=== PATIENT | male | born 1965 | race Caucasian/White ===

== ENCOUNTER 2018-03-01 23:05 | Emergency (ER) | payer OTHER ==
[~2018-03-01] VITALS: Ht 188 cm; Wt 87.0 kg
[~2018-03-01 23:05] MED LIST: Z.0.NO CURRENT MEDS
[2018-03-01 23:11] VITALS: BP 159/74; PULSE 103; RESP 20; TEMP 102.3; O2SAT 93
[2018-03-01 23:45] VITALS: BP 159/74; PULSE 103; RESP 20; TEMP 102.3; O2SAT 93
[2018-03-02] MEDS ORDERED: SODIUM CHLOR 0.9% 1000 ML INJ 1,000 ML IV ONE
[2018-03-02] MEDS ORDERED: ACETAMINOPHEN 325 MG TAB PO ONE
[2018-03-02] MEDS ORDERED: IBUPROFEN 800 MG TAB PO ONE
--- NOTE | 2018-03-02 00:07 | RADRPT ---
EXAM DATE/TIME: 03/01/2018 23:52 [place] COMPARISON: No previous studies available for comparison. INDICATIONS : Fever, cough, shortness of breath. MEDICAL HISTORY : None. SURGICAL HISTORY : None. ENCOUNTER: Initial ACUITY: 3 days PAIN SCORE: 0/10 LOCATION: Bilateral chest FINDINGS: A single view of the chest demonstrates bibasilar linear densities. Heart normal in size. The cardiom ediastinal contours are unremarkable. Osseous structures are intact. CONCLUSION: 1. Bibasilar atelectasis versus infiltrates. Dallas Pantoja MD on March 02, 2018 at 0:05 Board Certified Radiologist. This report was verified electronically.
[2018-03-02] MEDS ORDERED: cefTRIAXone INJ 2,000 MG in SODIUM CHLORIDE 0.9% INJ 100 ML IV ONE (00:15)
[2018-03-02] MEDS ORDERED: AZITHROMYCIN INJ 500 MG in SODIUM CHLOR 0.9% 250 ML INJ 250 ML IV ONE (00:15)
[2018-03-02 00:16] VITALS: O2SAT 94
[2018-03-02 00:28] LABS: AUTOMATED NEUTROPHIL # 7.8 TH/MM3 (1.8-7.7); BASOPHIL # 0.3 TH/MM3 (0-0.2); BASOPHIL % 3.1 % (0.0-2.0); EOSINOPHIL % 0.3 % (0.0-4.0); HEMOGLOBIN 14.8 GM/DL (13.0-17.0); LYMPH % 6.1 % (9.0-44.0); LYMPHOCYTE # 0.5 TH/MM3 (1.0-4.8); MEAN CELL VOLUME 91.4 FL (80.0-100.0); MEAN CORPUSCULAR HEMOGLOBIN 30.1 PG (27.0-34.0); MEAN CORPUSCULAR HGB CONC 32.9 % (32.0-36.0); MEAN PLATELET VOLUME 8.5 FL (7.0-11.0); MONOCYTE # 0.4 TH/MM3 (0-0.9); NEUT % 86.5 % (16.0-70.0); PLATELET COUNT 148 TH/MM3 (150-450); RED BLOOD COUNT 4.93 MIL/MM3 (4.50-5.90); RED CELL DISTRIBUTION WIDTH 12.2 % (11.6-17.2)
[2018-03-02 00:37] LABS: CHLORIDE 102 MEQ/L (98-107); SODIUM (NA) 136 MEQ/L (136-145)
[2018-03-02 00:40] LABS: CALCIUM 8.3 MG/DL (8.5-10.1)
[2018-03-02 00:41] LABS: ALBUMIN 3.4 GM/DL (3.4-5.0); BICARBONATE 25.2 MEQ/L (21.0-32.0); BLOOD UREA NITROGEN 19 MG/DL (7-18); GLUCOSE,RANDOM 140 MG/DL (74-106)
[2018-03-02 00:44] LABS: ALT (GPT) 21 U/L (12-78); AST (GOT) 13 U/L (15-37); GLOMERULAR FILTRATION RATE 70 ML/MIN (>89)
[2018-03-02 00:46] LABS: TOTAL BILIRUBIN ADULT 0.3 MG/DL (0.2-1.0)
[2018-03-02 00:47] LABS: ALKALINE PHOSPHATASE 62 U/L (45-117)
[2018-03-02 00:48] LABS: LACTIC ACID SEPSIS PROTOCOL 2.6 mmol/L (0.4-2.0)
[2018-03-02 01:38] VITALS: BP 125/67; PULSE 85; RESP 20; O2SAT 96
--- NOTE | 2018-03-02 01:43 | PD ---
HPI Chief Complaint: Cold / Flu Symptoms Time Seen by Provider: 23:50 Travel History International Travel<30 days: No Contact w/Intl Traveler<30days: No Traveled to known affect area: No History of Present Illness HPI 52-year-old male presents to the emergency department complaint of fever chills cough congestion and recent diagnosis of influenza. Patient states last week he was diagnosed with influenza was placed on Tamiflu and completed the course of Tamiflu today. Subsequently patient is noted persistent fever fatigue and cough productive of yellow sputum. No hemoptysis no headache no sinus pressure drainage no sore throat no ear pain no chest pain no wheezing no abdominal pain no vomiting no diarrhea no flank pain or dysuria frequency urgency decreased urine output or hematuria. Patient no longer has myalgias arthralgias and denies any joint pain or swelling. Patient is otherwise in good health and does not take medications on a routine basis. Patient did take dose of acetaminophen earlier in the evening but has not taken any subsequently. Patient presents now for further evaluation. 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 bundle branch block, denies cardiac problems) High Cholesterol: No Congestive Heart Failure: No Diabetes: No Gastrointestinal Disorders: Yes (esophageal stricture/spasms/dilation) GERD: Yes Hypertension: No Myocardial Infarction: No Past Surgical History Coronary Artery Bypass Graft: No Tonsillectomy: Yes (and adenoidectomy) Other Surgery: Yes (ESOPHAGEAL DILATATION 2003, ADENOIDS REMOVED CHILD) Social History Alcohol Use: No Tobacco Use: No Substance Use: No Allergies-Medications (Allergen,Severity, Reaction): Uncoded Allergies: strawberries (Allergy, Intermediate, Swelling, 03/02/18) swelling of throat Reported Meds & Prescriptions Reported Meds & Active Scripts Active Ventolin Hfa 18 GM Inh (Albuterol Sulfate) 90 Mcg/Act Aer 2 Puff INH Q4-6H PRN Zithromax Z-Doyle (Azithromycin) 250 Mg Dspk 250 Mg PO DIRECTED 500 MG (2 tabs) day 1, then 1 tab days 2-5. Reported No Current Meds (Miscellaneous Medication) Misc Review of Systems Except as stated in HPI: all other systems reviewed are Neg General / Constitutional: Positive: Fever, Chills HENT: Positive: Congestion Cardiovascular: No: Chest Pain or Discomfort Respiratory: Positive: Cough, No: Shortness of Breath Gastrointestinal: No: Vomiting, Diarrhea Genitourinary: No: Dysuria, Flank Pain Musculoskeletal: No: Myalgias, Arthralgias Skin: No Rash Neurologic: No: Weakness, Dizziness, Syncope Psychiatric: No: Anxiety Hematologic/Lymphatic: No: Lymph Node Enlargement Physical Exam Narrative GENERAL: Well-developed well-nourished male in no respiratory distress with fever SKIN: Warm and dry. HEAD: Normocephalic. EYES: No scleral icterus. No injection or drainage. NECK: Supple, trachea midline. No JVD or lymphadenopathy. CARDIOVASCULAR: Increased regular rate and rhythm without murmurs, gallops, or rubs. RESPIRATORY: Breath sounds equal bilaterally. No accessory muscle use. GASTROINTESTINAL: Abdomen soft, non-tender, nondistended. MUSCULOSKELETAL: No cyanosis, or edema. BACK: Nontender without obvious deformity. No CVA tenderness. Data Data Last Documented VS Vital Signs Date Time Temp Pulse Resp B/P (MAP) Pulse Ox O2 Delivery O2 Flow Rate FiO2 03/02/18 03:18 61 20 126/65 (85) 94 Room Air 03/02/18 01:58 99.1 Orders Orders Sepsis Workup Initiated (03/01/18 ) Complete Blood Count With Diff (03/01/18 23:50) Comprehensive Metabolic Panel (03/01/18 23:50) Lactic Acid Sepsis Protocol (03/01/18 23:50) Urinalysis - C+S If Indicated (03/01/18 23:50) Influenzae A/B Antigen (03/01/18 23:50) Blood Culture (03/01/18 23:50) Chest, Single Ap (03/01/18 23:50) Blood Glucose (03/01/18 23:50) Ecg Monitoring (03/01/18 23:50) Iv Access Insert/Monitor (03/01/18 23:50) Oximetry (03/01/18 23:50) Oxygen Administration (03/01/18 23:50) Sodium Chlor 0.9% 1000 Ml Inj (Ns 1000 M (03/02/18 00:00) Ibuprofen (Motrin) (03/02/18 00:00) Acetaminophen (Tylenol) (03/02/18 00:00) Azithromycin Inj (Zithromax Inj) (03/02/18 00:15) Ceftriaxone Inj (Rocephin Inj) (03/02/18 00:15) Ed Discharge Order (03/02/18 02:51) Labs Laboratory Tests Test 03/02/18 00:10 03/02/18 01:45 03/02/18 02:30 White Blood Count 9.0 TH/MM3 Red Blood Count 4.93 MIL/MM3 Hemoglobin 14.8 GM/DL Hematocrit 45.0 % Mean Corpuscular Volume 91.4 FL Mean Corpuscular Hemoglobin 30.1 PG Mean Corpuscular Hemoglobin Concent 32.9 % Red Cell Distribution Width 12.2 % Platelet Count 148 TH/MM3 Mean Platelet Volume 8.5 FL Neutrophils (%) (Auto) 86.5 % Lymphocytes (%) (Auto) 6.1 % Monocytes (%) (Auto) 4.0 % Eosinophils (%) (Auto) 0.3 % Basophils (%) (Auto) 3.1 % Neutrophils # (Auto) 7.8 TH/MM3 Lymphocytes # (Auto) 0.5 TH/MM3 Monocytes # (Auto) 0.4 TH/MM3 Eosinophils # (Auto) 0.0 TH/MM3 Basophils # (Auto) 0.3 TH/MM3 CBC Comment DIFF FINAL Differential Comment Blood Urea Nitrogen 19 MG/DL Creatinine 1.10 MG/DL Random Glucose 140 MG/DL Total Protein 7.0 GM/DL Albumin 3.4 GM/DL Calcium Level 8.3 MG/DL Alkaline Phosphatase 62 U/L Aspartate Amino Transf (AST/SGOT) 13 U/L Alanine Aminotransferase (ALT/SGPT) 21 U/L Total Bilirubin 0.3 MG/DL Sodium Level 136 MEQ/L Potassium Level 3.8 MEQ/L Chloride Level 102 MEQ/L Carbon Dioxide Level 25.2 MEQ/L Anion Gap 9 MEQ/L Estimat Glomerular Filtration Rate 70 ML/MIN Lactic Acid Level 2.6 mmol/L 1.9 mmol/L Urine Collection Type CLEAN CATCH Urine Color YELLOW Urine Turbidity CLEAR Urine pH 5.5 Urine Specific [place] 1.010 Urine Protein NEG mg/dL Urine Glucose (UA) NEG mg/dL Urine Ketones NEG mg/dL Urine Occult Blood NEG Urine Nitrite NEG Urine Bilirubin NEG Urine Urobilinogen 0.2 MG/DL Urine Leukocyte Esterase NEG Urine Squamous Epithelial Cells 0-5 /hpf Urine Amorphous Sediment SMALL Urine Mucus MOD /lpf Microscopic Urinalysis Comment CULT NOT INDICATED MDM Medical Decision Making Medical Screen Exam Complete: Yes Emergency Medical Condition: Yes Medical Record Reviewed: Yes Interpretation(s) Last Impressions Chest X-Ray 03/01/18 2350 Signed Impressions: Service Date/Time: Thursday, March 01, 2018 23:52 - CONCLUSION: 1. Bibasilar atelectasis versus infiltrates. Dallas Pantoja MD CBC & BMP Diagram 03/02/18 00:10 Total Protein 7.0, Albumin 3.4, Calcium Level 8.3 L, Alkaline Phosphatase 62, Aspartate Amino Transf (AST/SGOT) 13 L, Alanine Aminotransferase (ALT/SGPT) 21, Total Bilirubin 0.3 Vital Signs Date Time Temp Pulse Resp B/P (MAP) Pulse Ox O2 Delivery O2 Flow Rate FiO2 03/02/18 03:18 61 20 126/65 (85) 94 Room Air 03/02/18 01:58 99.1 86 20 97 Room Air 03/02/18 01:38 85 20 125/67 (86) 96 Room Air 03/02/18 00:17 Room Air 03/02/18 00:16 94 Room Air 03/01/18 23:56 103 20 93 Room Air 03/01/18 23:45 102.3 103 20 159/74 (102) 93 03/01/18 23:11 102.3 103 20 159/74 (102) 93 Differential Diagnosis Febrile illness, influenza, pneumonia, sepsis Narrative Course At 1:44 AM vital signs have normalized patient feels clinically and symptomatically improved and desirous of being discharged home discussed with patient with at bedside diagnosis of pneumonia and sepsis is aware has received a dose of Rocephin for 24-hour therapy and azithromycin for 24 hour therapy and is no longer tachycardic or febrile and no respiratory distress or tachypnea. CBC is automated differential normal total white cell count however left shift by automated differential; lactic acid is elevated at 2.6 Chemistry grossly within normal range Chest x-ray shows right greater than left basilar infiltrate atelectasis Recommendation for admission however patient feels well has close relationship with primary care provider can see primary care provider in one day and is compliant with medications. Will attempt trial of outpatient therapy for post influenza early pneumonia without hypoxemia although patient is encouraged to return immediately within 12 hours her last or 24 hours if fever shortness of breath weakness or any concerns as will require hospitalization. Repeat lactic acid 1.9. Again patient is offered admission for IV fluids IV antibiotics antipyretics and management post influenza with ongoing febrile illness and right lower lobe infiltrate. Patient does not want to be admitted to the hospital feels markedly improved is desirous of being discharged home with close follow-up with his primary care provider 1 day. Patient will be given trial of outpatient oral antibiotics. Critical Care Narrative Aggregate critical care time was 40 minutes. Time to perform other separately billable procedures was not included in the critical care time. My time did not include minutes spent treating any other patients simultaneously or on activities that did not directly contribute to the patient's treatment. The services I provided to this patient were to treat and/or prevent clinically significant deterioration that could result in: Respiratory failure, septic shock, I provided critical care services requiring my management, as noted below: Chart data review, documentation time, medication orders and management, vital sign assessments/reviewing monitor data, ordering and reviewing lab tests, ordering and interpreting/reviewing x-rays and diagnostic studies, care of the patient and discussion of the patient with the admitting physicians. Sepsis Criteria SIRS Criteria (2 or more): Temp > 100.9 or < 96.8, Heart rate over 90 Sepsis Criteria (SIRS+source): Infect source susp/known (pulmonary/ early pneumonia) Severe Sepsis (+one): Lactate >2 Diagnosis Primary Impression: Pneumonia Qualified Codes: J18.1 - Lobar pneumonia, unspecified organism Additional Impression: Sepsis Qualified Codes: A41.9 - Sepsis, unspecified organism Referrals: Primary Care Physician 1 day Patient Instructions: General Instructions Departure Forms: Tests/Procedures, Work Release Special Instructions: no work x 3 days Additional Instructions: Increase fluid hydration complete course of antibiotic as prescribed Take acetaminophen/Tylenol every 4 hours for fever 100.4F or greater Take ibuprofen 800 mg every 8 hours for fever 100.4F or greater for pain Associates inflammation Complete course of antibiotic as prescribed Follow-up with your primary care provider 1 day Return to the emergency department for any concerns or change in condition No work 3 days Med/Other Pt SpecificInfo: Prescription(s) given Scripts Albuterol 18 GM Inh (Ventolin Hfa 18 GM Inh) 90 Mcg/Act Aer 2 PUFF INH Q4-6H Y for SHORTNESS OF BREATH, #1 INHALER 0 Refills Prov: Bing Stern MD 03/02/18 Azithromycin (Zithromax Z-Doyle) 250 Mg Dspk 250 MG PO DIRECTED for Infection, #1 DSPK 0 Refills 500 MG (2 tabs) day 1, then 1 tab days 2-5. Prov: Bing Stern MD 03/02/18 Disposition: 01 DISCHARGE HOME Condition: Stable Bing Stern MD Mar 02, 2018 01:43
[2018-03-02 01:58] VITALS: PULSE 86; RESP 20; TEMP 99.1; O2SAT 97
[2018-03-02 02:01] LABS: BILIRUBIN, URINE NEG (NEG); BLOOD, URINE NEG (NEG); GLUCOSE,URINE NEG (NEG); KETONE, URINE NEG (NEG); NITRITE,URINE NEG (NEG); PH, URINE 5.5 (5.0-8.5); URINE COLOR YELLOW (YELLW/STRAW); URINE LEUKOCYTE ESTERASE NEG (NEG)
[2018-03-02 02:16] LABS: MUCUS URINE MOD /lpf (OCC)
[2018-03-02 02:17] LABS: AMORPHOUS SEDIMENT, URINE SMALL; SQUAMOUS EPITHELIAL CELL URINE 0-5 /hpf (0-5)
[2018-03-02] MEDS ORDERED: VENTAER INH (02:54)
[2018-03-02] MEDS ORDERED: ZITHTAB PO (02:54)
[2018-03-02 03:18] VITALS: BP 126/65; PULSE 61; RESP 20; O2SAT 94
== END 2018-03-02 03:30 | disposition home or self-care (01) ==
LOC: PHED 23:05
DX: J18.9 Pneumonia, unspecified organism (principal); A41.9 Sepsis, unspecified organism; J45.909 Unspecified asthma, uncomplicated; K21.9 Gastro-esophageal reflux disease without esophagitis; Z79.51 Long term (current) use of inhaled steroids
CPT/HCPCS: 71045; 80053; 81001; 83605; 85025; 87040; 87804; 96361; 96365; 96367; 99291; J0456; J0696; J7030; J7050

== ENCOUNTER 2018-04-28 05:22 | Inpatient (IN) | payer OTHER ==
[~2018-04-28] VITALS: Ht 188 cm; Wt 92.3 kg
[~2018-04-28 05:22] MED LIST changes: +VENTAER INH; +ZITHTAB PO
[2018-04-28 05:32] VITALS: BP 147/76; PULSE 66; RESP 18; TEMP 98; O2SAT 99
[2018-04-28] MEDS ORDERED: NEXI40CA PO (06:00)
[2018-04-28] MEDS ORDERED: BACT400T PO (06:00)
[2018-04-28] MEDS ORDERED: CLINDAMYCIN 600 MG/NS PREMIX 50 ML IV ONE (06:15)
[2018-04-28] MEDS ORDERED: TETANUS/DIPHTHERIA TOXOID ADULT 0.5 ML VIAL IM ONE (06:15)
[2018-04-28] MEDS ORDERED: VANCOMYCIN INJ 1,000 MG in SODIUM CHLOR 0.9% 250 ML INJ 250 ML IV ONE (06:15)
--- NOTE | 2018-04-28 06:16 | PD ---
HPI Chief Complaint: Skin Problem Time Seen by Provider: 05:50 Travel History International Travel<30 days: No Contact w/Intl Traveler<30days: No Traveled to known affect area: No History of Present Illness HPI The patient is a 52-year-old male who presents to emergency department for an infected second digit of the right hand. The patient states he was working last Friday on a metal sink with another piece of metal equipment and thinks he may have injured his finger at that time. The patient states the next day he saw a small pinpoint area over the proximal interphalangeal joint, he then noticed that there was increasing swelling. He placed an object in the affected area in an attempt to drain it. He had no drainage at that time, however, the next day noticed his finger was swollen. The patient was seen at [facility] on Friday and diagnosed with a finger infection. The patient was placed on Bactrim at that time. The patient notes increasing swelling and pain, now has drainage from an open area over the proximal interphalangeal joint and middle phalanx. He is right-hand dominant. He cannot recall his last tetanus shot. He denies any fever. He is able to flex the affected area, however, has pain with flexion at the PIP. 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, denies cardiac problems) High Cholesterol: No Congestive Heart Failure: No Diabetes: No Gastrointestinal Disorders: Yes (esophageal stricture/spasms/dilation) GERD: Yes Hypertension: No Myocardial Infarction: No Past Surgical History Coronary Artery Bypass Graft: No Tonsillectomy: Yes (and adenoidectomy) Other Surgery: Yes (ESOPHAGEAL DILATATION 2003, ADENOIDS REMOVED CHILD) Social History Alcohol Use: No Tobacco Use: No Substance Use: No Allergies-Medications (Allergen,Severity, Reaction): Coded Allergies: vancomycin (Verified Adverse Reaction, Intermediate, Flushing, 04/28/18) REDNESS/ ITCHING Uncoded Allergies: strawberries (Allergy, Intermediate, Swelling, 03/02/18) swelling of throat Reported Meds & Prescriptions Reported Meds & Active Scripts Active Reported Bactrim (Sulfamethoxazole-Trimethoprim) 400-80 Mg Tab 1 Tab PO BID Nexium (Esomeprazole DR) 40 Mg Capdr 40 Mg PO DAILY Review of Systems Except as stated in HPI: all other systems reviewed are Neg General / Constitutional: No: Fever, Chills Musculoskeletal: Positive: Edema, Pain Skin: Positive Other (As noted in the history of present illness) Neurologic: No: Paresthesia, Sensory Disturbance Physical Exam Narrative GENERAL: Awake, alert, nontoxic-appearing 52-year-old male who appears his stated age and is in no acute respiratory distress. SKIN: Focused skin assessment warm/dry. HEAD: Atraumatic. Normocephalic. EYES: No injection or drainage. ENT: No nasal bleeding or discharge. Mucous membranes pink and moist. NECK: Trachea midline. No JVD. CARDIOVASCULAR: Regular rate and rhythm. No murmur appreciated. RESPIRATORY: No accessory muscle use. Clear to auscultation. Breath sounds equal bilaterally. MUSCULOSKELETAL: Second digit of the right hand is edematous and erythematous. There is an open area over the middle proximal phalanx and proximal interphalangeal joint. There is surrounding erythema and slight necrosis of the skin. When the joint is palpated, there is purulent drainage expressed from the opening area. He is able to flex at the MCP to almost 90 as well as the DIP. Positive right radial pulse. NEUROLOGICAL: Awake and alert. No obvious cranial nerve deficits. Motor grossly within normal limits. Normal speech. PSYCHIATRIC: Appropriate mood and affect; insight and judgment normal. Data Data Last Documented VS Vital Signs Date Time Temp Pulse Resp B/P (MAP) Pulse Ox O2 Delivery O2 Flow Rate FiO2 04/28/18 05:32 98.0 66 18 147/76 (99) 99 Orders Orders Tetanus/Diphtheria Tox Adult (Tetanus/Di (04/28/18 06:15) Complete Blood Count With Diff (04/28/18 06:04) Basic Metabolic Panel (Bmp) (04/28/18 06:04) Clindamycin 600 Mg/Ns Premix (Cleocin 60 (04/28/18 06:15) Vancomycin Inj (Vancomycin Inj) (04/28/18 06:15) Finger ([id number]) (04/28/18 ) Consult Hand Surgery (04/28/18 ) Consent (04/28/18 06:16) Diet Npo (04/28/18 Breakfast) W[place]gren Sedimentation Rate (04/28/18 06:16) C-Reactive Protein (Crp) (04/28/18 06:16) Mri Hand W&W/O Contrast (04/28/18 ) Consult Infectious Disease (04/28/18 ) (Hub Use Only)Inp Phy Cons/Ref (04/28/18 ) (Hub Use Only)Inp Phy Cons/Ref (04/28/18 ) Admit To Inpatient (04/28/18 ) Vital Signs (Adult) Q4H (04/28/18 06:30) Activity Oob Ad Zabrina (04/28/18 06:30) Intake + Output SHAYAN.QSHIFT (04/28/18 06:30) Sodium Chlor 0.9% 1000 Ml Inj (Ns 1000 M (04/28/18 06:30) Sodium Chloride 0.9% Flush (Ns Flush) (04/28/18 06:30) Sodium Chloride 0.9% Flush (Ns Flush) (04/28/18 09:00) Acetaminophen (Tylenol) (04/28/18 06:30) Basic Metabolic Panel (Bmp) (04/29/18 06:00) Complete Blood Count With Diff (04/29/18 06:00) Case Management Consult (04/28/18 06:30) Scd Bilateral/Knee High SHAYAN.BID (04/28/18 06:30) Naloxone Inj (Narcan Inj) (04/28/18 06:30) Magnesium Hydroxide Liq (Milk Of Magnesi (04/28/18 06:30) Sennosides (Senokot) (04/28/18 06:30) Bisacodyl Supp (Dulcolax Supp) (04/28/18 06:30) Lactulose Liq (Lactulose Liq) (04/28/18 06:30) Inpatient Certification (04/28/18 ) Admit Order (Ed Use Only) (04/28/18 06:33) Labs Laboratory Tests Test 04/28/18 06:30 White Blood Count 8.9 TH/MM3 Red Blood Count 4.73 MIL/MM3 Hemoglobin 15.0 GM/DL Hematocrit 44.3 % Mean Corpuscular Volume 93.5 FL Mean Corpuscular Hemoglobin 31.7 PG Mean Corpuscular Hemoglobin Concent 34.0 % Red Cell Distribution Width 13.8 % Platelet Count 260 TH/MM3 Mean Platelet Volume 7.9 FL Neutrophils (%) (Auto) 73.4 % Lymphocytes (%) (Auto) 14.6 % Monocytes (%) (Auto) 8.4 % Eosinophils (%) (Auto) 3.0 % Basophils (%) (Auto) 0.6 % Neutrophils # (Auto) 6.5 TH/MM3 Lymphocytes # (Auto) 1.3 TH/MM3 Monocytes # (Auto) 0.7 TH/MM3 Eosinophils # (Auto) 0.3 TH/MM3 Basophils # (Auto) 0.1 TH/MM3 CBC Comment DIFF FINAL Differential Comment Erythrocyte Sedimentation Rate 13 mm/hr Blood Urea Nitrogen 18 MG/DL Creatinine 1.10 MG/DL Random Glucose 95 MG/DL Calcium Level 9.0 MG/DL Sodium Level 139 MEQ/L Potassium Level 3.9 MEQ/L Chloride Level 104 MEQ/L Carbon Dioxide Level 24.7 MEQ/L Anion Gap 10 MEQ/L Estimat Glomerular Filtration Rate 70 ML/MIN C-Reactive Protein 3.50 MG/DL MDM Medical Decision Making Medical Screen Exam Complete: Yes Emergency Medical Condition: Yes Medical Record Reviewed: Yes Interpretation(s) X-ray of the second digit right hand reveals what appears to be a foreign body over the extensor surface of the proximal phalanx, just proximal to the PIP. Laboratory Tests Test 04/28/18 06:30 White Blood Count 8.9 TH/MM3 Red Blood Count 4.73 MIL/MM3 Hemoglobin 15.0 GM/DL Hematocrit 44.3 % Mean Corpuscular Volume 93.5 FL Mean Corpuscular Hemoglobin 31.7 PG Mean Corpuscular Hemoglobin Concent 34.0 % Red Cell Distribution Width 13.8 % Platelet Count 260 TH/MM3 Mean Platelet Volume 7.9 FL Neutrophils (%) (Auto) 73.4 % Lymphocytes (%) (Auto) 14.6 % Monocytes (%) (Auto) 8.4 % Eosinophils (%) (Auto) 3.0 % Basophils (%) (Auto) 0.6 % Neutrophils # (Auto) 6.5 TH/MM3 Lymphocytes # (Auto) 1.3 TH/MM3 Monocytes # (Auto) 0.7 TH/MM3 Eosinophils # (Auto) 0.3 TH/MM3 Basophils # (Auto) 0.1 TH/MM3 CBC Comment DIFF FINAL Differential Comment Erythrocyte Sedimentation Rate 13 mm/hr Blood Urea Nitrogen 18 MG/DL Creatinine 1.10 MG/DL Random Glucose 95 MG/DL Calcium Level 9.0 MG/DL Sodium Level 139 MEQ/L Potassium Level 3.9 MEQ/L Chloride Level 104 MEQ/L Carbon Dioxide Level 24.7 MEQ/L Anion Gap 10 MEQ/L Estimat Glomerular Filtration Rate 70 ML/MIN C-Reactive Protein 3.50 MG/DL Differential Diagnosis Differential diagnosis includes septic joint, infected finger failed outpatient therapy, finger abscess, necrotizing fasciitis, tenosynovitis. Narrative Course IV was established, labs are drawn and sent, and the patient was placed on cardiac telemetry monitoring and continuous pulse oximetry monitoring. The patient was advised he would be n.p.o. X-ray was ordered the second digit to rule out foreign body. The test and shot was updated. CBC, BMP were sent to lab and the patient was administered vancomycin 1 g intravenously and clindamycin 600 mg intravenously. I discussed the patient with Dr. Johnston, the on-call hand surgeon, who agrees with 23 hour observation to [facility] with consultation hand surgery. The patient will be kept n.p.o. I discussed the patient with Dr. Jesi Hall, [facility], he states that this is a workers comp case and the patient should be admitted to the on- call medical service. Therefore, discussed the [facility] Dr[facility] Carr, who agrees with admission. The patient will be admitted for IV antibiotics and possible definitive therapy in the operating room. The patient is comfortable with this plan of care and disposition. Physician Communication Physician Communication A call was placed to [facility] for 23 hour observation. I discussed the patient with Dr. Carr who agrees with admission. Diagnosis Primary Impression: Infected finger Admitting Information Admitting Physician Requests: Admit Condition: Stable Kali Villarreal MD Apr 28, 2018 06:16
[2018-04-28] MEDS ORDERED: BISACODYL 10 MG SUPP RECTAL PRN (06:30)
[2018-04-28] MEDS ORDERED: MAGNESIUM HYDROXIDE SUSP 30 ML CUP PO PRN (06:30)
[2018-04-28] MEDS ORDERED: LACTULOSE SYRUP 20 GM/30 ML CUP PO PRN (06:30)
[2018-04-28] MEDS ORDERED: SENNOSIDES 8.6 MG TAB PO PRN (06:30)
[2018-04-28] MEDS ORDERED: ACETAMINOPHEN 325 MG TAB PO PRN (06:30)
[2018-04-28] MEDS ORDERED: SODIUM CHLORIDE 0.9% FLUSH 10 ML FLUSH IV FLUSH PRN (06:30)
[2018-04-28] MEDS ORDERED: NALOXONE HCL 0.4 MG/ML AMP IV PUSH PRN (06:30)
--- NOTE | 2018-04-28 06:46 | RADRPT ---
EXAM DATE: 04/28/2018 6:21 AM EDT AGE/SEX: 52 years / Male INDICATIONS: Pain. Infected RT 2nd digit. CLINICAL DATA: This is the patient's initial encounter. Patient reports that signs and symptoms have been present for 1 week and indicates a pain score of 5/10. MEDICAL/SURGICAL HISTORY: None. None. COMPARISON: No prior [place] exams available for comparison. FINDINGS: Diffuse abnormal soft tissue swelling of the finger. The bony structures are grossly intact. No acute fracture or joint dislocation. Small calcification versus foreign body in the soft tissues along the dorsal portion of the finger. CONCLUSION: Diffuse abnormal soft tissue swelling. Electronically signed by: Jacob Hernandez MD 04/28/2018 6:45 AM EDT
[2018-04-28 06:59] LABS: AUTOMATED NEUTROPHIL # 6.5 TH/MM3 (1.8-7.7); BASOPHIL # 0.1 TH/MM3 (0-0.2); BASOPHIL % 0.6 % (0.0-2.0); EOSINOPHIL # 0.3 TH/MM3 (0-0.4); HEMATOCRIT 44.3 % (39.0-51.0); LYMPH % 14.6 % (9.0-44.0); LYMPHOCYTE # 1.3 TH/MM3 (1.0-4.8); MEAN CELL VOLUME 93.5 FL (80.0-100.0); MEAN CORPUSCULAR HEMOGLOBIN 31.7 PG (27.0-34.0); MEAN PLATELET VOLUME 7.9 FL (7.0-11.0); MONO % 8.4 % (0.0-8.0); MONOCYTE # 0.7 TH/MM3 (0-0.9); NEUT % 73.4 % (16.0-70.0); PLATELET COUNT 260 TH/MM3 (150-450); RED BLOOD COUNT 4.73 MIL/MM3 (4.50-5.90); RED CELL DISTRIBUTION WIDTH 13.8 % (11.6-17.2); WHITE BLOOD COUNT 8.9 TH/MM3 (4.0-11.0)
[2018-04-28 07:20] LABS: BICARBONATE 24.7 MEQ/L (21.0-32.0); CREATININE 1.1 MG/DL (0.60-1.30)
[2018-04-28] MEDS: SODIUM CHLORIDE 0.9% FLUSH 10 ML FLUSH IV FLUSH SCH ×2 (09:00→21:00)
[2018-04-28] MEDS ORDERED: GADODIAMIDE PF 287 MG/ML 20 ML VIAL (for RAD MRI) IV PUSH ONE (09:14)
--- NOTE | 2018-04-28 09:30 | RADRPT ---
EXAM DATE: 04/28/2018 8:57 AM EDT AGE/SEX: 52 years / Male INDICATIONS: Osteomyelitis. Pt cut finger working on sink Tues. 2nd digit right hand. CLINICAL DATA: This is the patient's initial encounter. Patient reports that signs and symptoms have been present for 2 days and indicates a pain score of 4/10. MEDICAL/SURGICAL HISTORY: Asthma. Gastroesophageal reflux disease. . Adenoidectomy. COMPARISON: No prior [place] exams available for comparison. TECHNIQUE: Multiplanar, multisequence MRI examination was performed without contrast and after the i ntravenous administration of 19 ml Omniscan (gadodiamide) contrast as a single exam dose. FINDINGS: Marrow: There is homogeneous signal in the marrow of the visualized bones of the hand. Metacarpal-Phalangeal Joints: The MCP joints are unremarkable with no evidence of erosion, effusion, or malalignment. Interphalangeal Joints: The PIP and DIP joints are unremarkable with no evidence of erosion, effusio n or malalignment. Extensor Tendons: The visualized extensor tendons are intact. Flexor Tendons: The visualized flexor tendons are intact. Soft Tissues: There is marked soft tissue swelling around the second finger. There is marked enhance ment as well as a serpiginous area of nonenhancement along the dorsal ulnar aspect of the finger at t he level of the middle phalangeal bone presumably an abscess. It extends at least a centimeter in cep halocaudad length Post Contrast: Marked enhancement of the second finger except for what appears to be a small subcutan eous abscess CONCLUSION: 1. Marked enhancement inflammation of the soft tissues of the second finger with a abscess along the dorsal ulnar aspect measuring 1.3 x 0.5 cm across. It is 1 cm in length. Electronically signed by: Sharif Hamilton MD 04/28/2018 9:29 AM EDT
[2018-04-28 09:32] VITALS: BP 133/75; PULSE 58; RESP 18; O2SAT 97
[2018-04-28] MEDS: SODIUM CHLOR 0.9% 1000 ML INJ 1,000 ML IV SCH ×3 (09:34→22:29)
[2018-04-28 11:17] VITALS: BP 138/74; PULSE 60; RESP 18; TEMP 98; O2SAT 99
[2018-04-28] MEDS ORDERED: DEXAMETHASONE SOD PHOS 4 MG/ML VIAL IV ONE (12:00)
[2018-04-28] MEDS ORDERED: ONDANSETRON HCL 4 MG/2 ML VIAL IV ONE (12:00)
[2018-04-28] MEDS ORDERED: PROPOFOL 200 MG/20 ML AMP IV ONE (12:00)
[2018-04-28] MEDS ORDERED: LACTATED RINGER'S 1000 ML INJ 1,000 ML IV ONE (12:00)
[2018-04-28] MEDS ORDERED: POVIDONE IODINE 5% (ANTISEPSIS KIT) 4 APPLICATIONS EACH NARE PRN (13:15)
[2018-04-28] MEDS ORDERED: SODIUM CHLORID 0.9% 500 ML IV PRN (13:15)
[2018-04-28] MEDS ORDERED: LACTATED RINGER'S 1000 ML IV PRN (13:15)
[2018-04-28] MEDS ORDERED: CHLORHEXIDINE GLUCONATE 2 % 1 PACK (2 CLOTHS) TOPICAL PRN (13:15)
[2018-04-28] MEDS ORDERED: METOPROLOL TARTRATE 25 MG TAB PO PRN (13:15)
--- NOTE | 2018-04-28 13:55 | PD.CONS ---
History of Present Illness Service Infectious disease Consult Requested By Dr. Johnston Reason for Consult Evaluate patient with finger infection Primary Care Physician Non-Staff Diagnoses: History of Present Illness Patient seen and examined. Records reviewed. Patient is a 53-year-old male with no significant past medical history, was at work a week ago when he sustained a wound on his right index finger while working with metal. He was wearing gloves at that time. He thought he had a blister. He started noticing redness and swelling, and due to the nature of the injury, I took some time and he was eventually seen on Friday about 4 days prior to admission. He was given Bactrim. The swelling however was not improving and it was getting worse, so he went back to the clinic, and apparently the area was drained and got some pus. He was not really improving, and presented to the hospital and has now been admitted. The area of redness and swelling had stayed in the finger. He did not see any red streaks going up the hand or his forearm. He denies any fever chills or sweats. Denies any nausea or vomiting or other GI problem. Since admission he has not been febrile. MRI did show an abscess on the dorsal aspect of that finger, and there was no mention of any bone abnormality or fluid in the joint. His WBC is normal. Sed rate 13, C-reactive protein 3.5. Patient received 1 dose of vancomycin and clindamycin this morning Infectious disease consultation has been requested to assist with evaluation and treatment. Review of Systems Constitutional: DENIES: Fever, Chills, Night Sweats Eyes: DENIES: Eye pain Ears, nose, mouth, throat: DENIES: Nasal discharge, Oral lesions, Throat pain, Sinus Pain Respiratory: DENIES: Cough, Shortness of breath Cardiovascular: DENIES: Chest pain, Palpitations, Syncope, Dyspnea on Exertion Gastrointestinal: DENIES: Abdominal pain, Diarrhea, Nausea, Vomiting, Difficulty Swallowing Genitourinary: DENIES: Urgency, Dysuria Musculoskeletal: COMPLAINS OF: Joint pain, Joint Swelling Integumentary: DENIES: Rash Hematologic/lymphatic: DENIES: Bruising Immunologic/allergic: DENIES: Urticaria Neurologic: DENIES: Headache, Localized weakness Psychiatric: DENIES: Hallucinations Past Family Social History Allergies: Coded Allergies: vancomycin (Verified Adverse Reaction, Intermediate, Flushing, 04/28/18) REDNESS/ ITCHING Uncoded Allergies: strawberries (Allergy, Intermediate, Swelling, 03/02/18) swelling of throat Past Medical History Has known bundle branch block otherwise no other cardiac history Rest of medical history is unremarkable Past Surgical History None Reported Medications Reported Meds & Active Scripts Active Reported Bactrim (Sulfamethoxazole-Trimethoprim) 400-80 Mg Tab 1 Tab PO BID Nexium (Esomeprazole DR) 40 Mg Capdr 40 Mg PO DAILY Active Ordered Medications Current Medications Medications (Trade) Dose Ordered Sig/Deion Route Start Time Stop Time Status Last Admin Sodium Chloride 1,000 ml @ 100 mls/hr Q10H IV 04/28/18 06:30 04/28/18 09:34 (NS Flush) 2 ml UNSCH PRN IV FLUSH 04/28/18 06:30 (NS Flush) 2 ml BID IV FLUSH 04/28/18 09:00 (Tylenol) 650 mg Q4H PRN PO 04/28/18 06:30 (Narcan Inj) 0.4 mg UNSCH PRN IV PUSH 04/28/18 06:30 (Milk Of Magnesia Liq) 30 ml Q12H PRN PO 04/28/18 06:30 (Senokot) 17.2 mg Q12H PRN PO 04/28/18 06:30 (Dulcolax Supp) 10 mg DAILY PRN RECTAL 04/28/18 06:30 (Lactulose Liq) 30 ml DAILY PRN PO 04/28/18 06:30 Lactated Ringer's 1,000 ml @ 30 mls/hr Q24H PRN IV 04/28/18 13:15 05/01/18 13:14 UNV Sodium Chloride 500 ml @ 30 mls/hr [id number] PRN IV 04/28/18 13:15 05/01/18 13:14 UNV (Lopressor) 25 mg BAT BOY/GIRL PRN PO 04/28/18 13:15 05/01/18 13:14 UNV (Betadine 5% Antisepsis Kit) 1 applic BAT BOY/GIRL PRN EACH NARE 04/28/18 13:15 05/01/18 13:14 UNV (Chlorhexidine 2% Cloth) 3 pack BAT BOY/GIRL PRN TOPICAL 04/28/18 13:15 05/01/18 13:14 UNV Family History Noncontributory Social History Denies smoking Denies alcohol abuse Denies illicit drug Physical Exam Vital Signs Vital Signs Date Time Temp Pulse Resp B/P (MAP) Pulse Ox O2 Delivery O2 Flow Rate FiO2 04/28/18 11:17 98.0 60 18 138/74 (95) 99 04/28/18 09:32 58 18 133/75 (94) 97 Room Air 04/28/18 05:32 98.0 66 18 147/76 (99) 99 Physical Exam GENERAL: Patient is a well-nourished, well-developed male, awake and alert, not in respiratory distress. SKIN: Cool and dry. No generalized rash, no ecchymoses and no evidence of embolic lesions. HEAD: Atraumatic. Normocephalic. No temporal wasting, or tenderness. EYES: Ivy conjunctiva. No petechia or hemorrhage. Pupils equal, round and reactive to light. Extraocular movements full and intact. No scleral icterus. No injection or drainage. EARS, NOSE AND THROAT: Nose without bleeding or purulent nasal discharge. No sinus tenderness. Mucous membranes pink and moist. No oral lesions noted. NECK: Trachea midline. Supple and not tender, no meningeal signs CARDIOVASCULAR: Regular rate and rhythm. No murmurs, rubs or gallops heard RESPIRATORY: Clear to auscultation. Breath sounds equal bilaterally. No rales , wheezing or rhonchi ABDOMEN: Soft, non-tender, nondistended. Bowel sounds present and normoactive. No guarding. No rebound. No organomegaly. EXTREMITIES: No clubbing, cyanosis, or edema in BLE. R hand - the RIF is markedly wollen with redness mellisa at level of PIP with a fluctuant area that has bloody purulent fluid, sent fluid for G/S C/S. No lymphangitis seen on dorsum of R hand or forearm. No calf tenderness. Well perfused and warm. NEUROLOGICAL: Awake and alert. Cranial nerves grossly intact. Motor grossly within normal limits. PSYCHIATRIC: Normal affect, calm and cooperative. LINE: No evidence of infection Laboratory Laboratory Tests Test 04/28/18 06:30 White Blood Count 8.9 Red Blood Count 4.73 Hemoglobin 15.0 Hematocrit 44.3 Mean Corpuscular Volume 93.5 Mean Corpuscular Hemoglobin 31.7 Mean Corpuscular Hemoglobin Concent 34.0 Red Cell Distribution Width 13.8 Platelet Count 260 Mean Platelet Volume 7.9 Neutrophils (%) (Auto) 73.4 Lymphocytes (%) (Auto) 14.6 Monocytes (%) (Auto) 8.4 Eosinophils (%) (Auto) 3.0 Basophils (%) (Auto) 0.6 Neutrophils # (Auto) 6.5 Lymphocytes # (Auto) 1.3 Monocytes # (Auto) 0.7 Eosinophils # (Auto) 0.3 Basophils # (Auto) 0.1 CBC Comment DIFF FINAL Differential Comment Erythrocyte Sedimentation Rate 13 Blood Urea Nitrogen 18 Creatinine 1.10 Random Glucose 95 Calcium Level 9.0 Sodium Level 139 Potassium Level 3.9 Chloride Level 104 Carbon Dioxide Level 24.7 Anion Gap 10 Estimat Glomerular Filtration Rate 70 C-Reactive Protein 3.50 Date/Time Source Procedure Growth Status 04/28/18 13:36 Wound Finger Gram Stain Pending Received 04/28/18 13:36 Wound Finger Wound Culture Pending Received Result Diagram: 04/28/18 0630 04/28/18 0630 Imaging RADIOLOGY STUDIES/FILMS REVIEWED Hand MRI 04/28/18 0000 Signed Impressions: CONCLUSION: 1. Marked enhancement inflammation of the soft tissues of the second finger wi th a abscess along the dorsal ulnar aspect measuring 1.3 x 0.5 cm across. It is 1 cm in length. Finger X-Ray 04/28/18 0000 Signed Impressions: CONCLUSION: Diffuse abnormal soft tissue swelling. Assessment and Plan Assessment and Plan IMPRESSION RIF infection, from metal injury RECOMMENDATION Hand surgery to evaluate patient I got fluid from the RIF for G/S C/S Vanco + Cipro Follow C/S and adjust Abx Monitor progress Will determine course of treatment depending on the extent of the infection I will follow along with you Thank you for this consultation Discussed Condition With Discussed with RN Explained plan to the patient and Wendy Puentes MD Apr 28, 2018 13:55
[2018-04-28] MEDS ORDERED: Vancomycin Consult Pharmacy 1 EA OTHER SCH (14:00)
--- NOTE | 2018-04-28 14:38 | HHI.HP ---
[facility]Staff Ad[facility] Diagnosis Infected second digit right hand failed outpatient therapy Diagnoses: Chief Complaint: Right index infection Travel History International Travel<30 Days: No Contact w/Intl Traveler <30 Da: No Traveled to Known Affected Are: No History of Present Illness 52 years old male presented to the ED complaining of his right second digit swelling tender throbbing pain and Erythematous. 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 which he tried to poke but no drainage came out, and since then it was getting worse over and over swollen tender throbbing pain. 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 Esophageal stricture spasm dilatation GERD Adenoidectomy Past Surgical History As above Allergies: Coded Allergies: vancomycin (Verified Adverse Reaction, Intermediate, Flushing, 04/28/18) REDNESS/ ITCHING Uncoded Allergies: strawberries (Allergy, Intermediate, Swelling, 03/02/18) swelling of throat Family History Review with the patient,not aware of significant medical history related to her problem runs in the family Social History Denied tobacco alcohol or illicit drug abuse Physical Exam Vital Signs Vital Signs Date Time Temp Pulse Resp B/P (MAP) Pulse Ox O2 Delivery O2 Flow Rate FiO2 04/28/18 11:17 98.0 60 18 138/74 (95) 99 04/28/18 09:32 58 18 133/75 (94) 97 Room Air 04/28/18 05:32 98.0 66 18 147/76 (99) 99 Physical Exam GENERAL: This is a well-nourished, well-developed patient, in no apparent distress. SKIN: No rashes, warm and dry HEAD: Atraumatic. Normocephalic. EYES: Pupils equal round and reactive. Extraocular motions intact. No scleral icterus. ENT: Nose without bleeding, or drainage, Airway patent. NECK: Trachea midline. Supple CARDIOVASCULAR: Regular rate and rhythm without murmurs, gallops, or rubs. RESPIRATORY: Fair air entry bilaterally. No wheezes, rales, or rhonchi. GASTROINTESTINAL: Abdomen soft, non-tender, nondistended. Positive bowel sounds MUSCULOSKELETAL: Extremities without clubbing, cyanosis, or edema. Pedal pulses appreciated, right index swollen with edema, on the second interphalangeal there is crusted bloody drainage NEUROLOGICAL: Awake and alert. Moves all extremity. Normal speech.no focal neurological deficit Laboratory Laboratory Tests Test 04/28/18 06:30 White Blood Count 8.9 Red Blood Count 4.73 Hemoglobin 15.0 Hematocrit 44.3 Mean Corpuscular Volume 93.5 Mean Corpuscular Hemoglobin 31.7 Mean Corpuscular Hemoglobin Concent 34.0 Red Cell Distribution Width 13.8 Platelet Count 260 Mean Platelet Volume 7.9 Neutrophils (%) (Auto) 73.4 Lymphocytes (%) (Auto) 14.6 Monocytes (%) (Auto) 8.4 Eosinophils (%) (Auto) 3.0 Basophils (%) (Auto) 0.6 Neutrophils # (Auto) 6.5 Lymphocytes # (Auto) 1.3 Monocytes # (Auto) 0.7 Eosinophils # (Auto) 0.3 Basophils # (Auto) 0.1 CBC Comment DIFF FINAL Differential Comment Erythrocyte Sedimentation Rate 13 Blood Urea Nitrogen 18 Creatinine 1.10 Random Glucose 95 Calcium Level 9.0 Sodium Level 139 Potassium Level 3.9 Chloride Level 104 Carbon Dioxide Level 24.7 Anion Gap 10 Estimat Glomerular Filtration Rate 70 C-Reactive Protein 3.50 Date/Time Source Procedure Growth Status 04/28/18 13:36 Wound Finger Gram Stain Pending Received 04/28/18 13:36 Wound Finger Wound Culture Pending Received Result Diagram: 04/28/18 0630 04/28/18 0630 Imaging Last Impressions Hand MRI 04/28/18 0000 Signed Impressions: CONCLUSION: 1. Marked enhancement inflammation of the soft tissues of the second finger wi th a abscess along the dorsal ulnar aspect measuring 1.3 x 0.5 cm across. It is 1 cm in length. Finger X-Ray 04/28/18 0000 Signed Impressions: CONCLUSION: Diffuse abnormal soft tissue swelling. Caprini VTE Risk Assessment Caprini VTE Risk Assessment: No/Low Risk (score <= 1) Caprini Risk Assessment Model Point Value = 1 Point Value = 2 Point Value = 3 Point Value = 5 Age 41-60 Minor surgery BMI > 25 kg/m2 Swollen legs Varicose veins or History of unexplained or recurrent spontaneous Oral contraceptives or hormone replacement Sepsis (< 1 month) Serious lung disease, including pneumonia (< 1 month) Abnormal pulmonary function Acute myocardial infarction Congestive heart failure (< 1 month) History of inflammatory bowel disease Medical patient at bed rest Age 61-74 Arthroscopic surgery Major open surgery (> 45 min) Laparoscopic surgery (> 45 min) Malignancy Confined to bed (> 72 hours) Immobilizing plaster cast Central venous access Age >= 75 History of VTE Family history of VTE Factor V Leiden Prothrombin [id number] Lupus anticoagulant Anticardiolipin antibodies Elevated serum homocysteine Heparin-induced thrombocytopenia Other congenital or acquired thrombophilia Stroke (< 1 month) Elective arthroplasty Hip, pelvis, or leg fracture Acute spinal cord injury (< 1 month) Prophylaxis Regimen Total Risk Factor Score Risk Level Prophylaxis Regimen 0-1 Low Early ambulation 2 Moderate Order ONE of the following: *Sequential Compression Device (SCD) *Heparin 5000 units SQ BID 3-4 Higher Order ONE of the following medications: *Heparin 5000 units SQ TID *Enoxaparin/Lovenox 40 mg SQ daily (WT < 150 kg, CrCl > 30 mL/min) *Enoxaparin/Lovenox 30 mg SQ daily (WT < 150 kg, CrCl > 10-29 mL/min) *Enoxaparin/Lovenox 30 mg SQ BID (WT < 150 kg, CrCl > 30 mL/min) AND/OR *Sequential Compression Device (SCD) 5 or more Highest Order ONE of the following medications: *Heparin 5000 units SQ TID (Preferred with Epidurals) *Enoxaparin/Lovenox 40 mg SQ daily (WT < 150 kg, CrCl > 30 mL/min) *Enoxaparin/Lovenox 30 mg SQ daily (WT < 150 kg, CrCl > 10-29 mL/min) *Enoxaparin/Lovenox 30 mg SQ BID (WT < 150 kg, CrCl > 30 mL/min) AND *Sequential Compression Device (SCD) Assessment and Plan Assessment and Plan 52 years old male with Right index wound/abscess infection rule out tenosynovitis, no leukocytosis with left shift, will start on IV antibiotic vancomycin, ID and hand surgeon consulted appreciate their input, wound culture sent IV fluids, pain management. Patient has been seen by Dr. Gupta he will be on Vanco and Cipro Discussed Condition With ID Grabiel Melo MD Apr 28, 2018 14:38
[2018-04-28] MEDS ORDERED: LIDOCAINE HCL 1% PF 10 ML VIAL ONE (14:58)
[2018-04-28] MEDS ORDERED: NEOMYCIN/POLYMYXIN 1 ML G.U. IRRIGANT ONE (15:01)
[2018-04-28] MEDS: CIPROFLOXACIN 750 MG TAB PO SCH ×2 (15:39→21:00)
[2018-04-28 17:18] VITALS: BP 136/77; PULSE 60; RESP 18; TEMP 98.8; O2SAT 97
--- NOTE | 2018-04-28 17:21 | EKG ---
Date Performed: 04/28/2018 Time Performed: 08:37:51 PTAGE: 52 years EKG: SINUS BRADYCARDIA RIGHT BUNDLE BRANCH BLOCK ABNORMAL ECG PREVIOUS TRACING : 05/18/2013 17.19 Since the previous tracing, no significant change noted DOCTOR: Cesar Draper Interpretating Date/Time 04/28/2018 17:19:13
[2018-04-28] MEDS ORDERED: fentaNYL CITRATE 250 MCG/5 ML AMP ONE (20:11)
[2018-04-28] MEDS ORDERED: MIDAZOLAM HCL 2 MG/2 ML VIAL ONE (20:11)
[2018-04-28] MEDS ORDERED: CLINDAMYCIN PHOS 600 MG/4 ML VIAL ONE (20:47)
[2018-04-28] MEDS ORDERED: BACITRACIN TOP OINT 15 GM TUBE ONE (21:06)
[2018-04-28] MEDS ORDERED: *morphine SULFATE 10 MG/ML PERIprocedure ONLY ONE ×2 (21:42→22:43)
[2018-04-28] MEDS ORDERED: DO NOT ADM ANY ANTICOAGULANT DRUGS PRN (22:15)
--- NOTE | 2018-04-28 22:37 | PD.ORT.PN ---
Subjective Subjective Remarks Patient reports pain controlled in PACU. Objective Vitals Vital Signs Date Time Temp Pulse Resp B/P (MAP) Pulse Ox O2 Delivery O2 Flow Rate FiO2 04/28/18 17:18 98.8 60 18 136/77 (96) 97 04/28/18 11:17 98.0 60 18 138/74 (95) 99 04/28/18 09:32 58 18 133/75 (94) 97 Room Air 04/28/18 05:32 98.0 66 18 147/76 (99) 99 I/O 04/27/18 04/27/18 04/27/18 04/28/18 04/28/18 04/28/18 07:00 15:00 23:00 07:00 15:00 23:00 Intake Total 300 ml 1500 ml Output Total 10 ml Balance 300 ml 1490 ml Intake IV Total 300 ml 800 ml Other 700 ml Output Estimated Blood Loss 10 ml Result Diagram: 04/28/18 0630 04/28/18 0630 Imaging Last 24 hours Impressions Hand MRI 04/28/18 0000 Signed Impressions: CONCLUSION: 1. Marked enhancement inflammation of the soft tissues of the second finger wi th a abscess along the dorsal ulnar aspect measuring 1.3 x 0.5 cm across. It is 1 cm in length. Finger X-Ray 04/28/18 0000 Signed Impressions: CONCLUSION: Diffuse abnormal soft tissue swelling. Objective Remarks Dressing in place, <2 sec capillary refill to finger Assessment & Plan Assessment and Plan 52yM 1 week s/p injury to right index finger at work now POD0 s/p I&D significant abscess right index finger and debridement extensor tendon sheath -Significant friable skin-will likely take several weeks for skin to heal, will recommend splint to keep pip extended until wound heals -Packing in place, follow cultures and ID recs, likely will remain in hospital for several days for IV Ab -Off work until further notice -will continue to follow Yolande Johnston MD Apr 28, 2018 22:37
--- NOTE | 2018-04-28 22:55 | MB ---
cc: Yolande Johnston MD, Sarah E MD DATE: 04/28/2018 REASON FOR CONSULTATION: Abscess, right index finger. 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 He was wearing gloves. 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 He states he was seen on Friday and prescribed Bactrim. He reported no significant improvement and went to urgent care yesterday. He states that this area was drained with some purulence, but he reported persistent worsening pain and swelling and presented to the emergency room early this morning. He was evaluated and admitted for IV antibiotics and hand surgery evaluation. He denies any prior problems with the right hand. He is right hand dominant. He believes he has an old retained foreign body over the right index finger. He reports significant pain over the right index finger. Denies any paresthesias. PAST MEDICAL HISTORY: Bundle branch block. PAST SURGICAL HISTORY: Denies. ALLERGIES: NONE. MEDICATIONS: Bactrim currently. PHYSICAL EXAMINATION: GENERAL: The patient is alert and oriented. VITAL SIGNS: Stable. Temperature 98.0, pulse 60, blood pressure 138/74. Exam of the right index finger shows significant erythema and a transverse open area just distal to the PIP joint with significant purulence and swelling. There is erythema from the distal interphalangeal joint to the mid proximal phalanx. The patient has significant swelling over the finger. Function is intact of extensor tendon. Sensation is intact on the radial and ulnar side. Less than 2 second capillary refill. LABORATORY DATA: White count 8.9, ESR 13, CRP 3.5. IMAGING STUDIES: X-ray shows a retained metallic foreign body dorsally over the proximal phalanx. MRI was reviewed, which showed significant abscess over the dorsum of the right index finger without evidence of osteomyelitis at this time. ASSESSMENT AND PLAN: A 52-year-old male with a laceration with significant erythema and abscess of the right index finger, failed conservative measures including Bactrim and incision and drainage at urgent care. He presents for evaluation. At this time, I recommended surgical intervention at the earliest available time and the patient elected to proceed. He will likely remain in the hospital for several days on intravenous antibiotics and will be off work until further notice. MD LORRI Malcolm/ , 10:40 PM , 10:54 PM JENNIFER
[2018-04-28 23:00] VITALS: BP 133/80; PULSE 62; RESP 16; TEMP 97.5; O2SAT 94
--- NOTE | 2018-04-28 23:00 | MP ---
cc: Yolande Johnston MD, Sarah E MD DATE OF OPERATION: 04/28/2018 PREOPERATIVE DIAGNOSIS: Abscess extensor tendon sheath right index finger. POSTOPERATIVE DIAGNOSIS: Abscess extensor tendon sheath right index finger. PROCEDURE: 1. Incision and drainage abscess, right index finger extensor tendon sheath. 2. Interpretation of fluoroscopy by the surgeon right index finger. SURGEON: Dr. Yolande Johnston ANESTHESIA: MAC. TOURNIQUET TIME: 18 minutes at 200 mmHg. SPECIMEN: Cultures x2. INDICATIONS FOR PROCEDURE: Brice Angeles is a 52-year-old male who states that he sustained an injury to his right index finger approximately 1 week ago at work. He noted worsening erythema and swelling after being started on Bactrim and presented to the emergency room for evaluation. He did undergo an I&D at the urgent care yesterday with no improvement in his symptoms. He reports significant worsening over the past 48 hours. The patient elected to proceed with surgical intervention. Risks were explained which were not limited to wound complication, infection, sepsis, osteomyelitis, stiffness, need for recurrent surgeries including skin graft and he elected to proceed. DESCRIPTION OF PROCEDURE: The patient was identified in the preoperative holding room and the correct extremity was marked. The patient was taken to the operating room where anesthesia was induced. The right upper extremity was prepped and draped in normal sterile fashion. The prior laceration was extended in a curvilinear fashion. There was significant friability to the skin. There was very significant purulence along the extensor tendon sheath, which was debrided and sent for culture. The extensor tendon remained intact. This did not communicate with the PIP joint. This was thoroughly irrigated with antibiotic saline and debrided with a rongeur. X-ray showed a metallic foreign body within the skin, but nothing between the skin and the tendon, which was likely consistent with the patient's story of an old foreign body. Tourniquet was released. There was less than 2-second capillary refill to the finger. Again, the wound was closed very loosely with chromic due to the friable skin and packing was placed on the proximal aspect of the wound. Approximately 10 mL of 2% lidocaine with no epinephrine was used for perform local anesthesia. The patient was placed into a soft dressing and awoken from anesthesia without complications. He will remain admitted for IV antibiotics and a custom splint. He will be off work until further notice. MD CHRISTIANA Malcolm , 10:43 PM , 10:[address] [facility]
[2018-04-28] MEDS ORDERED: ACETAMINOPHEN/HYDROcodone 325 MG/10 MG TAB PO PRN (23:15)
[2018-04-28] MEDS ORDERED: ACETAMINOPHEN/HYDROcodone 325 MG/5 MG TAB PO PRN (23:15)
[2018-04-29] MEDS: VANCOMYCIN 1,500 MG/NS 500 ML IV SCH ×4 (00:56→18:00)
[2018-04-29] MEDS ORDERED: ONDANSETRON ODT 4 MG TAB SL PRN (01:00)
[2018-04-29 05:05] VITALS: BP 120/66; PULSE 69; RESP 16; TEMP 97.2; O2SAT 95
[2018-04-29 06:28] LABS: AUTOMATED NEUTROPHIL # 6.2 TH/MM3 (1.8-7.7); BASOPHIL % 0.1 % (0.0-2.0); EOSINOPHIL % 0.1 % (0.0-4.0); HEMATOCRIT 41.5 % (39.0-51.0); HEMOGLOBIN 14.1 GM/DL (13.0-17.0); LYMPH % 7.8 % (9.0-44.0); LYMPHOCYTE # 0.5 TH/MM3 (1.0-4.8); MEAN CELL VOLUME 92.8 FL (80.0-100.0); MEAN CORPUSCULAR HEMOGLOBIN 31.6 PG (27.0-34.0); MEAN PLATELET VOLUME 7.9 FL (7.0-11.0); MONOCYTE # 0.1 TH/MM3 (0-0.9); PLATELET COUNT 242 TH/MM3 (150-450); RED BLOOD COUNT 4.47 MIL/MM3 (4.50-5.90); RED CELL DISTRIBUTION WIDTH 13.6 % (11.6-17.2); WHITE BLOOD COUNT 6.9 TH/MM3 (4.0-11.0)
[2018-04-29 06:49] LABS: BICARBONATE 24.4 MEQ/L (21.0-32.0); CALCIUM 8.4 MG/DL (8.5-10.1); CREATININE 0.94 MG/DL (0.60-1.30)
[2018-04-29 08:06] VITALS: BP 121/70; PULSE 66; RESP 16; TEMP 97.8; O2SAT 95
[2018-04-29] MEDS: SODIUM CHLORIDE 0.9% FLUSH 10 ML FLUSH IV FLUSH SCH ×2 (10:00→21:00)
[2018-04-29] MEDS: CIPROFLOXACIN 750 MG TAB PO SCH ×2 (10:01→22:31)
--- NOTE | 2018-04-29 10:51 | HHI.IDPN ---
Subjective Subjective Remarks Patient is a 53-year-old male with no significant past medical history, was at work a week ago when he sustained a wound on his right index finger while working with metal. He was wearing gloves at that time. He thought he had a blister. He started noticing redness and swelling, and due to the nature of the injury, I took some time and he was eventually seen on Friday about 4 days prior to admission. He was given Bactrim. The swelling however was not improving and it was getting worse, so he went back to the clinic, and apparently the area was drained and got some pus. He was not really improving, and presented to the hospital and has now been admitted. The area of redness and swelling had stayed in the finger. He did not see any red streaks going up the hand or his forearm. He denies any fever chills or sweats. Denies any nausea or vomiting or other GI problem. Since admission he has not been febrile. MRI did show an abscess on the dorsal aspect of that finger, and there was no mention of any bone abnormality or fluid in the joint. His WBC is normal. Sed rate 13, C-reactive protein 3.5. Patient received 1 dose of vancomycin and clindamycin this morning Infectious disease consultation has been requested to assist with evaluation and treatment. Notes reviewed [place] Surgery done yesterday Nothing yet of C/S from yesterday Ambulating in [facility] Antibiotics Ilana Valderrama Current Medications Medications (Trade) Dose Ordered Sig/Deion Route Start Time Stop Time Status Last Admin Sodium Chloride 1,000 ml @ 100 mls/hr Q10H IV 04/28/18 06:30 04/28/18 22:29 (NS Flush) 2 ml UNSCH PRN IV FLUSH 04/28/18 06:30 (NS Flush) 2 ml BID IV FLUSH 04/28/18 09:00 04/29/18 10:00 (Tylenol) 650 mg Q4H PRN PO 04/28/18 06:30 (Narcan Inj) 0.4 mg UNSCH PRN IV PUSH 04/28/18 06:30 (Milk Of Magnesia Liq) 30 ml Q12H PRN PO 04/28/18 06:30 (Senokot) 17.2 mg Q12H PRN PO 04/28/18 06:30 (Dulcolax Supp) 10 mg DAILY PRN RECTAL 04/28/18 06:30 (Lactulose Liq) 30 ml DAILY PRN PO 04/28/18 06:30 Pharmacy Profile Note 0 ml @ 0 mls/hr UNSCH OTHER 04/28/18 14:00 (Cipro) 750 mg Q12HR PO 04/28/18 14:00 04/29/18 10:01 Vancomycin HCl 1500 mg/Sodium Chloride 515 ml @ 257.5 mls/ hr Q18H IV 04/29/18 00:00 04/29/18 00:56 ([facility] Ordered Lab Info) SPECIFIC LAB TO BE DRAWN:VANCO TROUGH DATE... ONCE ONCE .XX 04/30/18 11:45 04/30/18 11:46 ([facility] Nursing Information) ALL NURSING DEPARTME... UNSCH PRN .XX 04/28/18 22:15 04/29/18 22:14 ([place] 5-325 Mg) 1 tab Q4H PRN PO 04/28/18 23:15 ([place] 10-325 Mg) 1 tab Q4H PRN PO 04/28/18 23:15 (Zofran Odt) 4 mg Q6H PRN SL 04/29/18 01:00 04/29/18 01:03 Lines PIV no evid of infection Past Medical History Unremarkable Allergies: Coded Allergies: vancomycin (Verified Adverse Reaction, Intermediate, Flushing, 04/28/18) REDNESS/ ITCHING Uncoded Allergies: strawberries (Allergy, Intermediate, Swelling, 03/02/18) swelling of throat Objective . Vital Signs Date Time Temp Pulse Resp B/P (MAP) Pulse Ox O2 Delivery O2 Flow Rate FiO2 04/29/18 08:06 97.8 66 16 121/70 (87) 95 04/29/18 05:05 97.2 69 16 120/66 (84) 95 04/28/18 23:00 Room Air 04/28/18 23:00 97.5 62 16 133/80 (97) 94 04/28/18 22:45 58 14 132/89 (103) 95 Room Air 04/28/18 22:30 51 14 126/84 (98) 95 Room Air 04/28/18 22:15 53 14 134/80 (98) 99 Room Air 04/28/18 22:00 55 14 130/69 (89) 99 Nasal Cannula 2 04/28/18 21:45 59 14 131/71 (91) 99 Nasal Cannula 2 04/28/18 21:38 97.4 57 14 118/67 (84) 99 Nasal Cannula 2 04/28/18 17:18 98.8 60 18 136/77 (96) 97 04/28/18 11:17 98.0 60 18 138/74 (95) 99 . Laboratory Tests Test 04/28/18 06:30 04/29/18 04:45 White Blood Count 8.9 TH/MM3 6.9 TH/MM3 Red Blood Count 4.73 MIL/MM3 4.47 MIL/MM3 Hemoglobin 15.0 GM/DL 14.1 GM/DL Hematocrit 44.3 % 41.5 % Mean Corpuscular Volume 93.5 FL 92.8 FL Mean Corpuscular Hemoglobin 31.7 PG 31.6 PG Mean Corpuscular Hemoglobin Concent 34.0 % 34.0 % Red Cell Distribution Width 13.8 % 13.6 % Platelet Count 260 TH/MM3 242 TH/MM3 Mean Platelet Volume 7.9 FL 7.9 FL Neutrophils (%) (Auto) 73.4 % 90.0 % Lymphocytes (%) (Auto) 14.6 % 7.8 % Monocytes (%) (Auto) 8.4 % 2.0 % Eosinophils (%) (Auto) 3.0 % 0.1 % Basophils (%) (Auto) 0.6 % 0.1 % Neutrophils # (Auto) 6.5 TH/MM3 6.2 TH/MM3 Lymphocytes # (Auto) 1.3 TH/MM3 0.5 TH/MM3 Monocytes # (Auto) 0.7 TH/MM3 0.1 TH/MM3 Eosinophils # (Auto) 0.3 TH/MM3 0.0 TH/MM3 Basophils # (Auto) 0.1 TH/MM3 0.0 TH/MM3 CBC Comment DIFF FINAL DIFF FINAL Differential Comment Erythrocyte Sedimentation Rate 13 mm/hr Laboratory Tests Test 04/28/18 06:30 04/29/18 04:45 Blood Urea Nitrogen 18 MG/DL 17 MG/DL Creatinine 1.10 MG/DL 0.94 MG/DL Random Glucose 95 MG/DL 169 MG/DL Calcium Level 9.0 MG/DL 8.4 MG/DL Sodium Level 139 MEQ/L 138 MEQ/L Potassium Level 3.9 MEQ/L 3.9 MEQ/L Chloride Level 104 MEQ/L 104 MEQ/L Carbon Dioxide Level 24.7 MEQ/L 24.4 MEQ/L Anion Gap 10 MEQ/L 10 MEQ/L Estimat Glomerular Filtration Rate 70 ML/MIN 84 ML/MIN C-Reactive Protein 3.50 MG/DL Microbiology Date/Time Source Procedure Growth Status 04/28/18 21:20 Wound Finger Fungal Smear Pending Received 04/28/18 21:20 Wound Finger Fungal Culture Pending Received 04/28/18 21:20 Wound Finger Acid Fast Stain Pending Received 04/28/18 21:20 Wound Finger Mycobacterial Culture Pending Received 04/28/18 21:20 Wound Finger Gram Stain Pending Received 04/28/18 21:20 Wound Finger Wound Culture Pending Received 04/28/18 21:20 Wound Finger Fungal Smear Pending Received 04/28/18 21:20 Wound Finger Fungal Culture Pending Received 04/28/18 21:20 Wound Finger Acid Fast Stain Pending Received 04/28/18 21:20 Wound Finger Mycobacterial Culture Pending Received 04/28/18 21:20 Wound Finger Gram Stain Pending Received 04/28/18 21:20 Wound Finger Wound Culture Pending Received 04/28/18 13:36 Wound Finger Gram Stain Pending Received 04/28/18 13:36 Wound Finger Wound Culture Pending Received Imaging Last Impressions Hand MRI 04/28/18 Signed Impressions: CONCLUSION: 1. Marked enhancement inflammation of the soft tissues of the second finger wi th a abscess along the dorsal ulnar aspect measuring 1.3 x 0.5 cm across. It is 1 cm in length. Finger X-Ray 04/28/18 Signed Impressions: CONCLUSION: Diffuse abnormal soft tissue swelling. Physical Exam GENERAL: awake and alert, not in respiratory distress. SKIN: Cool and dry. No generalized rash, no ecchymoses and no evidence of embolic lesions. HEAD: Atraumatic. Normocephalic. No temporal wasting, or tenderness. EYES: [place] conjunctiva. No petechia or hemorrhage. Pupils equal, round and reactive to light. Extraocular movements full and intact. No scleral icterus. No injection or drainage. EARS, NOSE AND THROAT: Nose without bleeding or purulent nasal discharge. No sinus tenderness. Mucous membranes pink and moist. No oral lesions noted. NECK: Trachea midline. Supple and not tender, no meningeal signs CARDIOVASCULAR: Regular rate and rhythm. No murmurs, rubs or gallops heard RESPIRATORY: Clear to auscultation. Breath sounds equal bilaterally. No rales , wheezing or rhonchi ABDOMEN: Soft, non-tender, nondistended. Bowel sounds present and normoactive. No guarding. No rebound. No organomegaly. EXTREMITIES: No clubbing, cyanosis, or edema in BLE. R hand - Has dry intact dressing, no lymphangitis sen in forearm NEUROLOGICAL: Awake and alert. Cranial nerves grossly intact. Motor grossly within normal limits. PSYCHIATRIC: Normal affect, calm and cooperative. LINE: No evidence of infection Assessment & Plan Remarks IMPRESSION RIF infection, from metal injury - tenosynovitis seen intraop RECOMMENDATION Vanco + Cipro Follow C/S and adjust Abx Monitor progress Will determine course of treatment depending on the extent of the infection Wendy Puentes MD Apr 29, 2018 10:51
[2018-04-29 12:06] VITALS: BP 130/71; PULSE 63; RESP 17; TEMP 97.7; O2SAT 99
[2018-04-29] MEDS: SODIUM CHLOR 0.9% 1000 ML INJ 1,000 ML IV SCH ×2 (12:42→22:34)
--- NOTE | 2018-04-29 12:51 | HHI.PR ---
Subjective Remarks Follow-up right index finger abscess/tenosynovitis April 29, 2018-patient seen and examined, denies any right hand pain. Patient was up and ambulated in the hallway. Currently afebrile. Objective Vitals Vital Signs Date Time Temp Pulse Resp B/P (MAP) Pulse Ox O2 Delivery O2 Flow Rate FiO2 04/29/18 08:06 97.8 66 16 121/70 (87) 95 04/29/18 05:05 97.2 69 16 120/66 (84) 95 04/28/18 23:00 Room Air 04/28/18 23:00 97.5 62 16 133/80 (97) 94 04/28/18 22:45 58 14 132/89 (103) 95 Room Air 04/28/18 22:30 51 14 126/84 (98) 95 Room Air 04/28/18 22:15 53 14 134/80 (98) 99 Room Air 04/28/18 22:00 55 14 130/69 (89) 99 Nasal Cannula 2 04/28/18 21:45 59 14 131/71 (91) 99 Nasal Cannula 2 04/28/18 21:38 97.4 57 14 118/67 (84) 99 Nasal Cannula 2 04/28/18 17:18 98.8 60 18 136/77 (96) 97 I/O 04/28/18 04/28/18 04/28/18 04/29/18 04/29/18 04/29/18 07:00 15:00 23:00 07:00 15:00 23:00 Intake Total 300 ml 1500 ml 755 ml Output Total 10 ml 700 ml Balance 300 ml 1490 ml 55 ml Intake Oral 240 ml IV Total 300 ml 800 ml 515 ml Other 700 ml Output Urine Total 700 ml Estimated Blood Loss 10 ml # Bowel Movements 0 Result Diagram: 04/29/18 0445 04/29/18 0445 Imaging Last Impressions Hand MRI 04/28/18 0000 Signed Impressions: CONCLUSION: 1. Marked enhancement inflammation of the soft tissues of the second finger wi th a abscess along the dorsal ulnar aspect measuring 1.3 x 0.5 cm across. It is 1 cm in length. Finger X-Ray 04/28/18 0000 Signed Impressions: CONCLUSION: Diffuse abnormal soft tissue swelling. Objective Remarks GENERAL: NAD SKIN: Warm and dry. HEAD: Normocephalic. EYES: No scleral icterus. No injection or drainage. NECK: Supple, trachea midline. No JVD or lymphadenopathy. CARDIOVASCULAR: Regular rate and rhythm without murmurs, gallops, or rubs. RESPIRATORY: Breath sounds equal bilaterally. No accessory muscle use. GASTROINTESTINAL: Abdomen soft, non-tender, nondistended. MUSCULOSKELETAL: No cyanosis, or edema. dressing over hand and RIF- neurovascular intact BACK: Nontender without obvious deformity. No CVA tenderness. Procedures 1. Incision and drainage abscess, right index finger extensor tendon sheath. 2. Interpretation of fluoroscopy by the surgeon right index finger. A/P Problem List: (1) Tenosynovitis of finger ICD Code: M65.9 - Synovitis and tenosynovitis, unspecified (2) Infected finger ICD Code: L08.9 - Local infection of the skin and subcutaneous tissue, unspecified Status: Acute Assessment and Plan 52-year-old man with Tenosynovitis of right index finger Right index finger abscess s/p Incision and drainage abscess, right index finger extensor tendon sheath. Currently on IV vancomycin and Cipro pending culture report Appreciate input from and surgery, infectious disease specialist Hyperglycemia No known history of diabetes type 2, check hemoglobin A1c and treat accordingly DVT prophylaxis;Low risk for VTE Dallas Minaya MD Apr 29, 2018 12:51
[2018-04-29 16:00] VITALS: BP 133/70; PULSE 64; RESP 17; TEMP 97.9; O2SAT 97
[2018-04-29 20:00] VITALS: BP 128/66; PULSE 60; RESP 18; TEMP 98.1; O2SAT 95
[2018-04-29] MEDS ORDERED: ALUMINUM/MAGNESIUM/SIMETH 30 ML CUP PO ONE (22:15)
[2018-04-30] VITALS: BP 124/76; PULSE 54; RESP 18; TEMP 97.5; O2SAT 95
[2018-04-30 04:00] VITALS: BP 123/77; PULSE 53; RESP 18; TEMP 97.8; O2SAT 94
[2018-04-30 08:06] VITALS: BP 124/66; PULSE 52; RESP 17; TEMP 97.8; O2SAT 97
[2018-04-30] MEDS: CIPROFLOXACIN 750 MG TAB PO SCH ×2 (08:42→20:41)
[2018-04-30] MEDS: SODIUM CHLORIDE 0.9% FLUSH 10 ML FLUSH IV FLUSH SCH ×2 (09:00→20:41)
[2018-04-30] MEDS: SODIUM CHLOR 0.9% 1000 ML INJ 1,000 ML IV SCH ×2 (10:10→20:42)
--- NOTE | 2018-04-30 10:53 | HHI.IDPN ---
Subjective Subjective Remarks Patient is a 53-year-old male with no significant past medical history, was at work a week ago when he sustained a wound on his right index finger while working with metal. He was wearing gloves at that time. He thought he had a blister. He started noticing redness and swelling, and due to the nature of the injury, I took some time and he was eventually seen on Friday about 4 days prior to admission. He was given Bactrim. The swelling however was not improving and it was getting worse, so he went back to the clinic, and apparently the area was drained and got some pus. He was not really improving, and presented to the hospital and has now been admitted. The area of redness and swelling had stayed in the finger. He did not see any red streaks going up the hand or his forearm. He denies any fever chills or sweats. Denies any nausea or vomiting or other GI problem. Since admission he has not been febrile. MRI did show an abscess on the dorsal aspect of that finger, and there was no mention of any bone abnormality or fluid in the joint. His WBC is normal. Sed rate 13, C-reactive protein 3.5. Patient received 1 dose of vancomycin and clindamycin this morning Infectious disease consultation has been requested to assist with evaluation and treatment. Notes reviewed [place] ok Wants to know when he can go home Operative note reviewed Wound C/S I took has MRSA Surgery done 04/28 Tolerating Abx Antibiotics Vanco Cipro Current Medications Medications (Trade) Dose Ordered Sig/Deion Route Start Time Stop Time Status Last Admin Sodium Chloride 1,000 ml @ 100 mls/hr Q10H IV 04/28/18 06:30 04/30/18 10:10 (NS Flush) 2 ml UNSCH PRN IV FLUSH 04/28/18 06:30 (NS Flush) 2 ml BID IV FLUSH 04/28/18 09:00 04/29/18 10:00 (Tylenol) 650 mg Q4H PRN PO 04/28/18 06:30 (Narcan Inj) 0.4 mg UNSCH PRN IV PUSH 04/28/18 06:30 (Milk Of Magnesia Liq) 30 ml Q12H PRN PO 04/28/18 06:30 (Senokot) 17.2 mg Q12H PRN PO 04/28/18 06:30 (Dulcolax Supp) 10 mg DAILY PRN RECTAL 04/28/18 06:30 (Lactulose Liq) 30 ml DAILY PRN PO 04/28/18 06:30 Pharmacy Profile Note 0 ml @ 0 mls/hr UNSCH OTHER 04/28/18 14:00 (Cipro) 750 mg Q12HR PO 04/28/18 14:00 04/30/18 08:42 Vancomycin HCl 1500 mg/Sodium Chloride 515 ml @ 257.5 mls/ hr Q18H IV 04/29/18 00:00 04/29/18 18:00 ([facility] Ordered Lab Info) SPECIFIC LAB TO BE DRAWN:VANCO TROUGH DATE... ONCE ONCE .XX 04/30/18 11:45 04/30/18 11:46 ([place] 5-325 Mg) 1 tab Q4H PRN PO 04/28/18 23:15 ([place] 10-325 Mg) 1 tab Q4H PRN PO 04/28/18 23:15 (Zofran Odt) 4 mg Q6H PRN SL 04/29/18 01:00 04/29/18 01:03 Lines PIV no evid of infection Past Medical History Unremarkable Allergies: Coded Allergies: vancomycin (Verified Adverse Reaction, Intermediate, Flushing, 04/28/18) REDNESS/ ITCHING Uncoded Allergies: strawberries (Allergy, Intermediate, Swelling, 03/02/18) swelling of throat Objective . Vital Signs Date Time Temp Pulse Resp B/P (MAP) Pulse Ox O2 Delivery O2 Flow Rate FiO2 04/30/18 08:06 97.8 52 17 124/66 (85) 97 04/30/18 07:00 Room Air 04/30/18 04:00 97.8 53 18 123/77 (92) 94 04/30/18 00:00 97.5 54 18 124/76 (92) 95 04/29/18 20:00 Room Air 04/29/18 20:00 98.1 60 18 128/66 (86) 95 04/29/18 16:00 97.9 64 17 133/70 (91) 97 04/29/18 12:06 97.7 63 17 130/71 (90) 99 . Laboratory Tests Test 04/29/18 04:45 White Blood Count 6.9 TH/MM3 Red Blood Count 4.47 MIL/MM3 Hemoglobin 14.1 GM/DL Hematocrit 41.5 % Mean Corpuscular Volume 92.8 FL Mean Corpuscular Hemoglobin 31.6 PG Mean Corpuscular Hemoglobin Concent 34.0 % Red Cell Distribution Width 13.6 % Platelet Count 242 TH/MM3 Mean Platelet Volume 7.9 FL Neutrophils (%) (Auto) 90.0 % Lymphocytes (%) (Auto) 7.8 % Monocytes (%) (Auto) 2.0 % Eosinophils (%) (Auto) 0.1 % Basophils (%) (Auto) 0.1 % Neutrophils # (Auto) 6.2 TH/MM3 Lymphocytes # (Auto) 0.5 TH/MM3 Monocytes # (Auto) 0.1 TH/MM3 Eosinophils # (Auto) 0.0 TH/MM3 Basophils # (Auto) 0.0 TH/MM3 CBC Comment DIFF FINAL Differential Comment Laboratory Tests Test 04/29/18 04:45 Blood Urea Nitrogen 17 MG/DL Creatinine 0.94 MG/DL Random Glucose 169 MG/DL Calcium Level 8.4 MG/DL Sodium Level 138 MEQ/L Potassium Level 3.9 MEQ/L Chloride Level 104 MEQ/L Carbon Dioxide Level 24.4 MEQ/L Anion Gap 10 MEQ/L Estimat Glomerular Filtration Rate 84 ML/MIN Microbiology Date/Time Source Procedure Growth Status 04/28/18 21:20 Wound Finger Fungal Smear - Final NO FUNGAL ELEMENTS SEEN. Resulted 04/28/18 21:20 Wound Finger Fungal Culture Pending Resulted 04/28/18 21:20 Wound Finger Acid Fast Stain Pending Received 04/28/18 21:20 Wound Finger Mycobacterial Culture Pending Received 04/28/18 21:20 Wound Finger Gram Stain - Final Resulted 04/28/18 21:20 Wound Finger Wound Culture Pending Resulted 04/28/18 21:20 Wound Finger Fungal Smear - Final NO FUNGAL ELEMENTS SEEN. Resulted 04/28/18 21:20 Wound Finger Fungal Culture Pending Resulted 04/28/18 21:20 Wound Finger Acid Fast Stain Pending Received 04/28/18 21:20 Wound Finger Mycobacterial Culture Pending Received 04/28/18 21:20 Wound Finger Gram Stain - Final Resulted 04/28/18 21:20 Wound Finger Wound Culture Pending Resulted 04/28/18 13:36 Wound Finger Gram Stain - Final Resulted 04/28/18 13:36 Wound Culture - Preliminary S. Aureus Mrsa Resulted Imaging Last Impressions Hand MRI 04/28/18 0000 Signed Impressions: CONCLUSION: 1. Marked enhancement inflammation of the soft tissues of the second finger wi th a abscess along the dorsal ulnar aspect measuring 1.3 x 0.5 cm across. It is 1 cm in length. Finger X-Ray 04/28/18 0000 Signed Impressions: CONCLUSION: Diffuse abnormal soft tissue swelling. Physical Exam GENERAL: awake and alert, not in respiratory distress. SKIN: Cool and dry. No generalized rash, no ecchymoses and no evidence of embolic lesions. HEAD: Atraumatic. Normocephalic. No temporal wasting, or tenderness. EYES: [place] conjunctiva. No petechia or hemorrhage. Pupils equal, round and reactive to light. Extraocular movements full and intact. No scleral icterus. No injection or drainage. EARS, NOSE AND THROAT: Nose without bleeding or purulent nasal discharge. No sinus tenderness. Mucous membranes pink and moist. No oral lesions noted. NECK: Trachea midline. Supple and not tender, no meningeal signs CARDIOVASCULAR: Regular rate and rhythm. No murmurs, rubs or gallops heard RESPIRATORY: Clear to auscultation. Breath sounds equal bilaterally. No rales , wheezing or rhonchi ABDOMEN: Soft, non-tender, nondistended. Bowel sounds present and normoactive. No guarding. No rebound. No organomegaly. EXTREMITIES: No clubbing, cyanosis, or edema in BLE. R hand - Has dry intact dressing, no lymphangitis sen in forearm NEUROLOGICAL: Awake and alert. Cranial nerves grossly intact. Motor grossly within normal limits. PSYCHIATRIC: Normal affect, calm and cooperative. LINE: No evidence of infection Assessment & Plan Remarks IMPRESSION RIF infection, from metal injury - tenosynovitis seen intraop - first wound C/S MRSA - intraop C/S pending RECOMMENDATION Continue Vanco + Cipro for now Follow C/S and adjust Abx Monitor progress Will D/W hand surgery after dressing change to determine course of Abx Explained plan to the patient Wendy Puentes MD Apr 30, 2018 10:53
--- NOTE | 2018-04-30 11:01 | HHI.PR ---
Subjective Remarks Follow-up right index finger abscess/tenosynovitis April 29, 2018-patient seen and examined, denies any right hand pain. Patient was up and ambulated in the hallway. Currently afebrile. April 30, 2018-patient seen and examined, wound positive for MRSA, has some mild pain to the tip of the right finger otherwise stable and afebrile. Objective Vitals Vital Signs Date Time Temp Pulse Resp B/P (MAP) Pulse Ox O2 Delivery O2 Flow Rate FiO2 04/30/18 08:06 97.8 52 17 124/66 (85) 97 04/30/18 07:00 Room Air 04/30/18 04:00 97.8 53 18 123/77 (92) 94 04/30/18 00:00 97.5 54 18 124/76 (92) 95 04/29/18 20:00 Room Air 04/29/18 20:00 98.1 60 18 128/66 (86) 95 04/29/18 16:00 97.9 64 17 133/70 (91) 97 04/29/18 12:06 97.7 63 17 130/71 (90) 99 I/O 04/29/18 04/29/18 04/29/18 04/30/18 04/30/18 04/30/18 07:00 15:00 23:00 07:00 15:00 23:00 Intake Total 755 ml 2595 ml 1082 ml Output Total 700 ml 1000 ml 1000 ml Balance 55 ml 1595 ml 82 ml Intake Oral 240 ml 1080 ml 342 ml IV Total 515 ml 1515 ml 740 ml Output Urine Total 700 ml 1000 ml 1000 ml # Bowel Movements 0 0 Result Diagram: 04/29/18 0445 04/29/18 0445 Objective Remarks GENERAL: NAD SKIN: Warm and dry. HEAD: Normocephalic. EYES: No scleral icterus. No injection or drainage. NECK: Supple, trachea midline. No JVD or lymphadenopathy. CARDIOVASCULAR: Regular rate and rhythm without murmurs, gallops, or rubs. RESPIRATORY: Breath sounds equal bilaterally. No accessory muscle use. GASTROINTESTINAL: Abdomen soft, non-tender, nondistended. MUSCULOSKELETAL: No cyanosis, or edema. dressing over hand and RIF- neurovascular intact BACK: Nontender without obvious deformity. No CVA tenderness. Procedures 1. Incision and drainage abscess, right index finger extensor tendon sheath. 2. Interpretation of fluoroscopy by the surgeon right index finger. A/P Problem List: (1) Tenosynovitis of finger ICD Code: M65.9 - Synovitis and tenosynovitis, unspecified (2) Infected finger ICD Code: L08.9 - Local infection of the skin and subcutaneous tissue, unspecified Status: Acute Assessment and Plan 52-year-old man with Tenosynovitis of right index finger Right index finger abscess s/p Incision and drainage abscess, right index finger extensor tendon sheath. Currently on IV vancomycin and Cipro pending culture report; growing MRSA Appreciate input from and surgery, infectious disease specialist Hyperglycemia No known history of diabetes type 2, Hemoglobin A1c pending and treat accordingly DVT prophylaxis;Low risk for VTE Dallas Minaya MD Apr 30, 2018 11:01
[2018-04-30] MEDS ORDERED: PHARMACY ORDERED LAB ONE (11:45)
[2018-04-30 12:06] VITALS: BP 130/80; PULSE 57; RESP 18; TEMP 98.2; O2SAT 96
[2018-04-30] MEDS: VANCOMYCIN 1,500 MG/NS 500 ML IV SCH ×2 (13:19)
[2018-04-30 16:06] VITALS: BP 124/61; PULSE 64; RESP 18; TEMP 98.2; O2SAT 95
--- NOTE | 2018-04-30 18:25 | PD.ORT.PN ---
Subjective Subjective Remarks Patient reports pain controlled. Patient walking halls. Splint made by OT Objective Vitals Vital Signs Date Time Temp Pulse Resp B/P (MAP) Pulse Ox O2 Delivery O2 Flow Rate FiO2 04/30/18 16:06 98.2 64 18 124/61 (82) 95 04/30/18 12:06 98.2 57 18 130/80 (97) 96 04/30/18 08:06 97.8 52 17 124/66 (85) 97 04/30/18 07:00 Room Air 04/30/18 04:00 97.8 53 18 123/77 (92) 94 04/30/18 00:00 97.5 54 18 124/76 (92) 95 04/29/18 20:00 Room Air 04/29/18 20:00 98.1 60 18 128/66 (86) 95 I/O 04/29/18 04/29/18 04/29/18 04/30/18 04/30/18 04/30/18 07:00 15:00 23:00 07:00 15:00 23:00 Intake Total 755 ml 2595 ml 1082 ml Output Total 700 ml 1000 ml 1000 ml Balance 55 ml 1595 ml 82 ml Intake Oral 240 ml 1080 ml 342 ml IV Total 515 ml 1515 ml 740 ml Output Urine Total 700 ml 1000 ml 1000 ml # Bowel Movements 0 0 Result Diagram: 04/29/18 0445 04/29/18 0445 Imaging Last 24 hours Impressions Hand MRI 04/28/18 0000 Signed Impressions: CONCLUSION: 1. Marked enhancement inflammation of the soft tissues of the second finger wi th a abscess along the dorsal ulnar aspect measuring 1.3 x 0.5 cm across. It is 1 cm in length. Finger X-Ray 04/28/18 0000 Signed Impressions: CONCLUSION: Diffuse abnormal soft tissue swelling. Objective Remarks Dressing changed, packing in place with mild drainage, healing wound over PIP with granulation tissue, <2 sec capillary refill, sitlt radial and ulnar sides, function intact fdp/fds Assessment & Plan Assessment and Plan [id number] 1 week s/p injury to right index finger at work now POD2 s/p I&D significant abscess right index finger and debridement extensor tendon sheath -Ab per ID, +MRSA -Okay to discharge per hand surgery with followup in office Friday once Ab determined by ID -Off work until further notice, keep bandage clean and dry -Keep packing in place until friday Yolande Johnstno MD Apr 30, 2018 18:25
[2018-04-30 20:00] VITALS: BP 131/71; PULSE 63; RESP 18; TEMP 97.6; O2SAT 97
[2018-05-01] VITALS: BP 131/78; PULSE 56; RESP 18; TEMP 97.7; O2SAT 95
[2018-05-01] MEDS ORDERED: VANCOMYCIN 1,500 MG/NS 500 ML IV SCH ×2 (01:00)
[2018-05-01 04:00] VITALS: BP 133/86; PULSE 56; RESP 18; TEMP 97.9; O2SAT 96
[2018-05-01] MEDS: SODIUM CHLOR 0.9% 1000 ML INJ 1,000 ML IV SCH (04:30)
[2018-05-01] MEDS: SODIUM CHLORIDE 0.9% FLUSH 10 ML FLUSH IV FLUSH SCH (08:05)
[2018-05-01] MEDS: CIPROFLOXACIN 750 MG TAB PO SCH (08:05)
[2018-05-01 08:06] VITALS: BP 137/86; PULSE 52; RESP 17; TEMP 97.9; O2SAT 97
--- NOTE | 2018-05-01 08:55 | HHI.IDPN ---
Subjective Subjective Remarks Patient is a 53-year-old male with no significant past medical history, was at work a week ago when he sustained a wound on his right index finger while working with metal. He was wearing gloves at that time. He thought he had a blister. He started noticing redness and swelling, and due to the nature of the injury, I took some time and he was eventually seen on Friday about 4 days prior to admission. He was given Bactrim. The swelling however was not improving and it was getting worse, so he went back to the clinic, and apparently the area was drained and got some pus. He was not really improving, and presented to the hospital and has now been admitted. The area of redness and swelling had stayed in the finger. He did not see any red streaks going up the hand or his forearm. He denies any fever chills or sweats. Denies any nausea or vomiting or other GI problem. Since admission he has not been febrile. MRI did show an abscess on the dorsal aspect of that finger, and there was no mention of any bone abnormality or fluid in the joint. His WBC is normal. Sed rate 13, C-reactive protein 3.5. Patient received 1 dose of vancomycin and clindamycin this morning Infectious disease consultation has been requested to assist with evaluation and treatment. Notes reviewed Temps ok Anxious to go home Spoke with Dr Patricia Johnston last night (hand surgery) - wound looks good Operative note reviewed Wound C/S MRSA Surgery done 04/28 Tolerating Abx Antibiotics Vanco Cipro Current Medications Medications (Trade) Dose Ordered Sig/Deion Route Start Time Stop Time Status Last Admin Sodium Chloride 1,000 ml @ 100 mls/hr Q10H IV 04/28/18 06:30 05/01/18 04:30 (NS Flush) 2 ml UNSCH PRN IV FLUSH 04/28/18 06:30 (NS Flush) 2 ml BID IV FLUSH 04/28/18 09:00 05/01/18 08:05 (Tylenol) 650 mg Q4H PRN PO 04/28/18 06:30 (Narcan Inj) 0.4 mg UNSCH PRN IV PUSH 04/28/18 06:30 (Milk Of Magnesia Liq) 30 ml Q12H PRN PO 04/28/18 06:30 04/30/18 13:19 (Senokot) 17.2 mg Q12H PRN PO 04/28/18 06:30 (Dulcolax Supp) 10 mg DAILY PRN RECTAL 04/28/18 06:30 (Lactulose Liq) 30 ml DAILY PRN PO 04/28/18 06:30 Pharmacy Profile Note 0 ml @ 0 mls/hr UNSCH OTHER 04/28/18 14:00 (Cipro) 750 mg Q12HR PO 04/28/18 14:00 05/01/18 08:05 (Harris 5-325 Mg) 1 tab Q4H PRN PO 04/28/18 23:15 (Harris 10-325 Mg) 1 tab Q4H PRN PO 04/28/18 23:15 (Zofran Odt) 4 mg Q6H PRN SL 04/29/18 01:00 04/29/18 01:03 Vancomycin HCl 1500 mg/Sodium Chloride 515 ml @ 257.5 mls/ hr Q12H IV 05/01/18 01:00 05/01/18 00:47 ([facility] Or[place] Lab Info) SPECIFIC LAB TO BE DRAWN:VANCO TROUGH DATE TO BE DR... ONCE ONCE .XX 05/02/18 00:45 05/02/18 00:46 Lines PIV no evid of infection Past Medical History Unremarkable Allergies: Coded Allergies: vancomycin (Verified Adverse Reaction, Intermediate, Flushing, 04/28/18) REDNESS/ ITCHING Uncoded Allergies: strawberries (Allergy, Intermediate, Swelling, 03/02/18) swelling of throat Objective . Vital Signs Date Time Temp Pulse Resp B/P (MAP) Pulse Ox O2 Delivery O2 Flow Rate FiO2 05/01/18 04:00 97.9 56 18 133/86 (102) 96 05/01/18 00:00 97.7 56 18 131/78 (95) 95 04/30/18 20:00 97.6 63 18 131/71 (91) 97 04/30/18 16:06 98.2 64 18 124/61 (82) 95 04/30/18 12:06 98.2 57 18 130/80 (97) 96 . Microbiology Date/Time Source Procedure Growth Status 04/28/18 21:20 Wound Finger Fungal Smear - Final NO FUNGAL ELEMENTS SEEN. Resulted 04/28/18 21:20 Wound Finger Fungal Culture Pending Resulted 04/28/18 21:20 Wound Finger Acid Fast Stain - Final NO ACID FAST BACILLI SEEN Resulted 04/28/18 21:20 Wound Finger Mycobacterial Culture Pending Resulted 04/28/18 21:20 Wound Finger Gram Stain - Final Resulted 04/28/18 21:20 Wound Culture - Preliminary S. Aureus Mrsa Resulted 04/28/18 21:20 Wound Finger Fungal Smear - Final NO FUNGAL ELEMENTS SEEN. Resulted 04/28/18 21:20 Wound Finger Fungal Culture Pending Resulted 04/28/18 21:20 Wound Finger Acid Fast Stain - Final NO ACID FAST BACILLI SEEN Resulted 04/28/18 21:20 Wound Finger Mycobacterial Culture Pending Resulted 04/28/18 21:20 Wound Finger Gram Stain - Final Resulted 04/28/18 21:20 Wound Culture - Preliminary S. Aureus Mrsa Resulted 04/28/18 13:36 Wound Finger Gram Stain - Final Complete 04/28/18 13:36 Wound Culture - Final S. Aureus Mrsa Complete Imaging Last Impressions Hand MRI 04/28/18 0000 Signed Impressions: CONCLUSION: 1. Marked enhancement inflammation of the soft tissues of the second finger wi th a abscess along the dorsal ulnar aspect measuring 1.3 x 0.5 cm across. It is 1 cm in length. Finger X-Ray 04/28/18 0000 Signed Impressions: CONCLUSION: Diffuse abnormal soft tissue swelling. Physical Exam GENERAL: awake and alert, not in respiratory distress. SKIN: Cool and dry. No generalized rash. HEAD: Atraumatic. Normocephalic. No temporal wasting, or tenderness. EYES: [place] conjunctiva. No petechia or hemorrhage. Extraocular movements full and intact. No scleral icterus. No injection or drainage. EARS, NOSE AND THROAT: Nose without bleeding or purulent nasal discharge. Mucous membranes pink and moist. No oral lesions noted. NECK: Trachea midline. Supple and not tender, no meningeal signs CARDIOVASCULAR: Regular rate and rhythm. No murmurs, rubs or gallops heard RESPIRATORY: Clear to auscultation. Breath sounds equal bilaterally. No rales , wheezing or rhonchi ABDOMEN: Soft, non-tender, nondistended. Bowel sounds present and normoactive. No guarding. No rebound. No organomegaly. EXTREMITIES: No clubbing, cyanosis, or edema in BLE. R hand - Has dry intact dressing, no lymphangitis sen in forearm NEUROLOGICAL: Grossly non-focal. PSYCHIATRIC: Normal affect, calm and cooperative. LINE: No evidence of infection Assessment & Plan Remarks IMPRESSION RIF infection, from metal injury - tenosynovitis seen intraop - first wound C/S MRSA - intraop C/S MRSA RECOMMENDATION Clindamycin 300 mg po QID x 14 days Give first dose of Abx now and if no GI problems, ok to D/C Explained plan to patient Wendy Puentes MD May 01, 2018 08:55
[2018-05-01] MEDS ORDERED: CLINDAMYCIN 150 MG CAP PO SCH (09:00)
[2018-05-01] MEDS ORDERED: CLIN300C5 PO (10:56)
[2018-05-01] MEDS ORDERED: HYDR-3516 PO (10:56)
--- NOTE | 2018-05-01 10:59 | HHI.PR ---
Subjective Remarks Follow-up right index finger abscess/tenosynovitis April 29, 2018-patient seen and examined, denies any right hand pain. Patient was up and ambulated in the hallway. Currently afebrile. April 30, 2018-patient seen and examined, wound positive for MRSA, has some mild pain to the tip of the right finger otherwise stable and afebrile. May 01, 2018-patient seen and examined, will switch to p.o. clindamycin and tolerated without any complication. Looking forward to going home today. Objective Vitals Vital Signs Date Time Temp Pulse Resp B/P (MAP) Pulse Ox O2 Delivery O2 Flow Rate FiO2 05/01/18 08:06 97.9 52 17 137/86 (103) 97 05/01/18 04:00 97.9 56 18 133/86 (102) 96 05/01/18 00:00 97.7 56 18 131/78 (95) 95 04/30/18 20:00 97.6 63 18 131/71 (91) 97 04/30/18 16:06 98.2 64 18 124/61 (82) 95 04/30/18 12:06 98.2 57 18 130/80 (97) 96 I/O 04/30/18 04/30/18 04/30/18 05/01/18 05/01/18 05/01/18 07:00 15:00 23:00 07:00 15:00 23:00 Intake Total 1082 ml 300 ml 4890 ml 1944 ml Output Total 1000 ml 2100 ml 1000 ml Balance 82 ml 300 ml 2790 ml 944 ml Intake Oral 342 ml 960 ml 444 ml IV Total 740 ml 300 ml 3930 ml 1500 ml Output Urine Total 1000 ml 2100 ml 1000 ml # Bowel Movements 0 1 0 Result Diagram: 04/29/18 0445 04/29/18 0445 Imaging Last Impressions Hand MRI 04/28/18 0000 Signed Impressions: CONCLUSION: 1. Marked enhancement inflammation of the soft tissues of the second finger wi th a abscess along the dorsal ulnar aspect measuring 1.3 x 0.5 cm across. It is 1 cm in length. Finger X-Ray 04/28/18 0000 Signed Impressions: CONCLUSION: Diffuse abnormal soft tissue swelling. Objective Remarks GENERAL: NAD SKIN: Warm and dry. HEAD: Normocephalic. EYES: No scleral icterus. No injection or drainage. NECK: Supple, trachea midline. No JVD or lymphadenopathy. CARDIOVASCULAR: Regular rate and rhythm without murmurs, gallops, or rubs. RESPIRATORY: Breath sounds equal bilaterally. No accessory muscle use. GASTROINTESTINAL: Abdomen soft, non-tender, nondistended. MUSCULOSKELETAL: No cyanosis, or edema. dressing over hand and RIF- neurovascular intact BACK: Nontender without obvious deformity. No CVA tenderness. Procedures 1. Incision and drainage abscess, right index finger extensor tendon sheath. 2. Interpretation of fluoroscopy by the surgeon right index finger. A/P Problem List: (1) Tenosynovitis of finger ICD Code: M65.9 - Synovitis and tenosynovitis, unspecified (2) Infected finger ICD Code: L08.9 - Local infection of the skin and subcutaneous tissue, unspecified Status: Acute Assessment and Plan 52-year-old man with Tenosynovitis of right index finger Right index finger abscess s/p Incision and drainage abscess, right index finger extensor tendon sheath. s/p IV vancomycin and Cipro and switch to clindamycin 300 mg 4 times daily 14 days; wound growing MRSA Appreciate input from and surgery, infectious disease specialist DVT prophylaxis;Low risk for VTE Dallas Minaya MD May 01, 2018 10:59
--- NOTE | 2018-05-01 11:00 | HHI.DS ---
Discharge Summary Admission Date Apr 28, 2018 at 06:34 Discharge Date: May 01, 2018 Admitting Diagnosis Infected second digit right hand failed outpatient therapy (1) Tenosynovitis of finger ICD Code: M65.9 - Synovitis and tenosynovitis, unspecified (2) Infected finger ICD Code: L08.9 - Local infection of the skin and subcutaneous tissue, unspecified Status: Acute Procedures 1. Incision and drainage abscess, right index finger extensor tendon sheath. 2. Interpretation of fluoroscopy by the surgeon right index finger. Brief History - From Admission 52 years old male presented to the ED complaining of his right second digit swelling tender throbbing pain and Erythematous. 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 which he tried to poke but no drainage came out, and since then it was getting worse over and over swollen tender throbbing pain. Patient was seen on Friday by his primary care and diagnosed with a finger infection placed on Bactrim but that did not help much patient could not recall having a tetanus shot he denied any fever or chills CBC/BMP: 04/29/18 0445 04/29/18 0445 Significant Findings Laboratory Tests Test 04/29/18 04:45 04/30/18 12:45 Red Blood Count 4.47 MIL/MM3 (4.50-5.90) Neutrophils (%) (Auto) 90.0 % (16.0-70.0) Lymphocytes (%) (Auto) 7.8 % (9.0-44.0) Lymphocytes # (Auto) 0.5 TH/MM3 (1.0-4.8) Random Glucose 169 MG/DL (74-106) Calcium Level 8.4 MG/DL (8.5-10.1) Estimat Glomerular Filtration Rate 84 ML/MIN (>89) Imaging Last Impressions Hand MRI 04/28/18 0000 Signed Impressions: CONCLUSION: 1. Marked enhancement inflammation of the soft tissues of the second finger wi th a abscess along the dorsal ulnar aspect measuring 1.3 x 0.5 cm across. It is 1 cm in length. Finger X-Ray 04/28/18 0000 Signed Impressions: CONCLUSION: Diffuse abnormal soft tissue swelling. PE at Discharge GENERAL: NAD SKIN: Warm and dry. HEAD: Normocephalic. EYES: No scleral icterus. No injection or drainage. NECK: Supple, trachea midline. No JVD or lymphadenopathy. CARDIOVASCULAR: Regular rate and rhythm without murmurs, gallops, or rubs. RESPIRATORY: Breath sounds equal bilaterally. No accessory muscle use. GASTROINTESTINAL: Abdomen soft, non-tender, nondistended. MUSCULOSKELETAL: No cyanosis, or edema. dressing over hand and RIF- neurovascular intact BACK: Nontender without obvious deformity. No CVA tenderness. Hospital Course While in the hospital, patient was treated for: Tenosynovitis of right index finger Right index finger abscess s/p Incision and drainage abscess, right index finger extensor tendon sheath. s/p IV vancomycin and Cipro and switch to clindamycin 300 mg 4 times daily 14 days; wound growing MRSA Appreciate input from and surgery, infectious disease specialist DVT prophylaxis;Low risk for VTE Pt Condition on Discharge: Good Discharge Disposition: Discharge Home Discharge Time: <= 30 minutes Discharge Instructions DIET: Follow Instructions for: Heart Healthy Diet Activities you can perform: Regular-No Restrictions Follow up Referrals: Hand Surgery PCP Follow-up - 1 Week New Medications: Clindamycin (Clindamycin) 300 Mg Cap 300 MG PO Q6H for Infection, #56 CAP 0 Refills Hydrocodone/Acetaminophen (Hydrocodone-Acetamin 5-325 mg) 5 Mg-325 Mg Tablet 1 TAB PO Q4H PRN for pain 1-5, #20 TAB Continued Medications: Esomeprazole DR (Nexium) 40 Mg Capdr 40 MG PO DAILY, CAP 0 Refills Discontinued Medications: Sulfamethoxazole-Trimethoprim (Bactrim) 400-80 Mg Tab 1 TAB PO BID for Infection, TAB 0 Refills Dallas Minaya MD May 01, 2018 11:00
[2018-05-01 14:06] VITALS: BP 137/77; PULSE 60; RESP 17; TEMP 98; O2SAT 99
[2018-05-02] MEDS ORDERED: PHARMACY ORDERED LAB ONE (00:45)
== END 2018-05-01 14:37 | disposition home or self-care (01) | DRG 983 ==
LOC: HOR 05:22 → NEDA 06:34 → NEPFCDU 10:45 → N04B 22:25
PROVIDERS: ADMIT Hospitalist; ATTEND Hospitalist
PROC: 0LB70ZZ Excision of Right Hand Tendon, Open Approach (ICD-10-PCS; principal; 2018-04-28 20:22)
DX: L02.511 Cutaneous abscess of right hand (principal); B95.62 Methicillin resistant Staphylococcus aureus infection as the cause of diseases classified elsewhere; K21.9 Gastro-esophageal reflux disease without esophagitis; M65.9 Synovitis and tenosynovitis, unspecified; R73.9 Hyperglycemia, unspecified; W45.8XXA Other foreign body or object entering through skin, initial encounter
CPT/HCPCS: 73140; 73220; 76000; 80048; 80202; 85025; 85652; 86140; 86403; 86850; 86900; 86901; 87015; 87070; 87102; 87116; 87147; 87186; 87205; 87206; 90471; 90714; 93005; 96374; A4570; A9579; J1100; J2250; J2270; J2405; J3010; J3370; J7030; J7040; J7050; J7120